=== PATIENT | female | born 1940 | race Hispanic/Latino ===

== ENCOUNTER 2019-02-25 09:43 | Emergency (ER) | payer OTHER ==
[2019-02-25 10:30] LABS: Absolute Lymphocytes (CBC) 1.9 K/uL (0.7-4.9); Basophils % 0.8 % (0-1.3); Hematocrit 43.7 % (36.0-45.0); Lymphocytes % 31.4 % (15.3-44.8); MPV 8.3 fL (7.6-11.3); RBC Red Blood Cell Count 4.77 M/uL (3.86-4.86)
[2019-02-25 10:36] LABS: Protime INR 0.94
[2019-02-25 10:59] LABS: ALT/SGPT 25 U/L (12-78); AST/SGOT 21 U/L (15-37); Albumin 3.9 g/dL (3.4-5.0); Alkaline Phosphatase 56 U/L (45-117); BUN Blood Urea Nitrogen 19 mg/dL (7-18); Bicarbonate 28 mmol/L (21-32); Bilirubin Direct 0.1 mg/dL (0-0.2); Bilirubin Total 0.5 mg/dL (0.2-1.0); Glucose Level 96 mg/dL (74-106); Magnesium 2.2 mg/dL (1.8-2.4); NT PRO-BNP 409 pg/mL (<450); Potassium 4.7 mmol/L (3.5-5.1); Protein, Total 7.8 g/dL (6.4-8.2); Sodium Level 132 mmol/L (136-145); Troponin (Emerg Dept Use Only) < 0.02 ng/mL (0.0-0.045)
--- NOTE | 2019-02-25 11:12 | RAD REPORT ---
EXAM DESCRIPTION: [place] Single View02/25/2019 10:52 am CLINICAL HISTORY: Chest pain COMPARISON: 2009 FINDINGS: The lungs appear clear of acute infiltrate. The heart is mildly enlarged IMPRESSION: No acute abnormalities displayed
--- NOTE | 2019-02-25 11:30 | RAD REPORT ---
EXAM DESCRIPTION: CT - Angio Aorta For Dissection - 02/25/2019 11:15 am CLINICAL HISTORY: CP and HTN COMPARISON: Portable chest same date TECHNIQUE: Dynamically enhanced 3 mm thick images of the chest, abdomen, and upper pelvis were obtai sridevi during administration of approximately 150mL Isovue 370 IV contrast. Sagittal and coronal reconst ruction images were generated using MIP and reviewed. Exam utilizes a protocol to evaluate entire cou rse of the aorta. All CT scans are performed using dose optimization technique as appropriate and may include automated exposure control or mA/KV adjustment according to patient size. FINDINGS: Aorta is normal in diameter with no dissection or other acute aortic findings. Reconstruct ion images show no suspicious findings. Aortic calcifications are present without no displacement. Th ere is dense calcification near the origin of the left subclavian artery. Subclavian origin stenosis is not suspected. Innominate artery and left common carotid artery origins are bovine configuration v ariant. Pulmonary arteries are normal as well. No cardiomegaly, pericardial thickening or pericardial effusio n. No focal mass or infiltrate. Interstitial pattern is not outside of normal range. No pleural thickeni ng, pleural effusion or pneumothorax. No abnormal mediastinal or hilar mass or lymphadenopathy seen. No chest wall mass or abnormal axillar y lymphadenopathy. No pericardial effusion. Celiac, SMA and renal arteries show no suspicious findings. Solid abdominal viscera and bowel show no significant findings. No mass or abnormal lymphadenopathy. No free air, free fluid or inflammatory stranding. No urinary bladder abnormality. Bony degenerative changes are present. No acute bone finding. Degenerative changes most pronounced at L5-S1. IMPRESSION: Negative CT scan of the aorta for dissection, aneurysm or acute finding. No other significant findings on chest, abdomen and upper pelvis examination.Nonacute findings are de tailed in the body of the report.
[2019-02-25] MEDS ORDERED: LORAZEPAM 1 MG TABLET ONE (12:00)
[2019-02-25] MEDS ORDERED: MECLIZINE HCL 12.5 MG TAB ONE (12:00)
[2019-02-25] MEDS ORDERED: ACETAMINOPHEN 325 MG TABLET ONE (12:04)
--- NOTE | 2019-02-25 12:24 | ER ---
Nurse's Notes [facility] Name: Amy Wood Age: 78 yrs Sex: Female : 1940 Arrival Date: 02/25/2019 Time: 09:46 Bed 8 Private MD: Asif Hill Diagnosis: Dizziness and giddiness Presentation: 02/25 09:58 Presenting complaint: Patient states: BP was high yesterday at 190/80 and is still high jl7 today at 169/80, reports pain between shoulder blades and LOPEZ since yesterday and is dizzy this morning. Transition of care: patient was not received from another setting of care. Onset of symptoms was February 23, 2019. Risk Assessment: Do you want to hurt yourself or someone else? Patient reports no desire to harm self or others. Initial Sepsis Screen: Does the patient meet any 2 criteria? No. Patient's initial sepsis screen is negative. Does the patient have a suspected source of infection? No. Patient's initial sepsis screen is negative. Care prior to arrival: None. 09:58 Method Of Arrival: Ambulatory 7 09:58 Acuity: GRIS 2 jl7 Triage Assessment: 09:50 General: Appears in no apparent distress. uncomfortable, Behavior is cooperative. Pain: jl7 Complains of pain in LOPEZ, upper back pain Pain currently is 5 out of 10 on a pain scale. EENT: No signs and/or symptoms were reported regarding the EENT system. Neuro: Level of Consciousness is awake, alert, obeys commands. Cardiovascular: Heart tones present Patient's skin is warm and dry. Respiratory: Airway is patent Respiratory effort is even, unlabored, Respiratory pattern is regular, symmetrical, Breath sounds are clear bilaterally. GI: No signs and/or symptoms were reported involving the gastrointestinal system. : No signs and/or symptoms were reported regarding the genitourinary system. Derm: Skin is pink, warm \T\ dry. Musculoskeletal: Range of motion: intact in all extremities. Historical: - Allergies: 10:02 Codeine; jl7 10:02 Sulfa (Sulfonamide Antibiotics); jl7 10:02 Ciprofloxacin; jl7 10:02 Doxycycline; jl7 10:02 Bactrim; jl7 - Home Meds: 10:02 bisoprolol fumarate 5 mg Oral tab 1 tab TID [Active]; spironolactone 25 mg Oral tab 1 jl7 tab 2 times per day [Active]; - PMHx: 10:02 Hypertension; jl7 - PSHx: 10:02 Knee surgery; foot surgery; Hysterectomy; jl7 - Immunization history:: Adult Immunizations not up to date. - Social history:: Smoking status: Patient/guardian denies using tobacco. - Ebola Screening: : No symptoms or risks identified at this time. Screenin:59 Abuse screen: Denies threats or abuse. Denies injuries from another. Nutritional sv screening: No deficits noted. Tuberculosis screening: No symptoms or risk factors identified. Fall Risk None identified. Assessment: 10:00 General: See triage assessment. jl7 11:00 Reassessment: Patient appears in no apparent distress at this time. No changes from jl7 previously documented assessment. Patient and/or family updated on plan of care and expected duration. Pain level reassessed. Patient is alert, oriented x 3, equal unlabored respirations, skin warm/dry/pink. 12:00 Reassessment: Patient appears in no apparent distress at this time. No changes from jl7 previously documented assessment. Patient and/or family updated on plan of care and expected duration. Pain level reassessed. Patient is alert, oriented x 3, equal unlabored respirations, skin warm/dry/pink. Vital Signs: 10:02 BP 210 / 83; Pulse 70; Resp 16 S; Temp 98.2(TE); Pulse Ox 100% on R/A; Pain 5/10; jl7 10:40 BP 188 / 80; Pulse 66; Resp 16 S; Pulse Ox 97% on R/A; jl7 11:56 BP 179 / 76; Pulse 59; Resp 16; Pulse Ox 96% ; sv ED Course: 09:46 Patient arrived in ED. as 09:46 Asif Hill MD is Private Physician. as 09:48 Lakhwinder Bird RN is Primary Nurse. jl7 09:59 Arm band placed on. sv 09:59 Patient has correct armband on for positive identification. Bed in low position. Call sv light in reach. Adult w/ patient. Door closed. Head of bed elevated. 10:00 Triage completed. jl7 10:05 Venkat Davison MD is Attending Physician. kdr 10:20 Inserted saline lock: 22 gauge in right forearm, using aseptic technique. ,using sv aseptic technique. diffusics Blood collected. Flushed right forearm with 5 ml normal saline. 11:02 XRAY Chest (1 view) In Process Unspecified. EDMS 11:16 CT Aorta for Dissection In Process Unspecified. EDMS 12:23 Asif Hill MD is Referral Physician. kdr 12:56 No provider procedures requiring assistance completed. IV discontinued, intact, jl7 bleeding controlled, No redness/swelling at site. Pressure dressing applied. Administered Medications: 12:22 Drug: Meclizine 25 mg Route: PO; jl7 12:55 Follow up: Response: No adverse reaction; Marked relief of symptoms jl7 12:22 Not Given (Patient Refused): Ativan 1 mg PO once jl7 12:24 Drug: Tylenol 650 mg Route: PO; jl7 12:55 Follow up: Response: No adverse reaction; Pain is decreased jl7 Outcome: 12:23 Discharge ordered by MD. kdr 12:57 Discharged to home ambulatory. jl7 12:57 Condition: stable 12:57 Discharge instructions given to patient, Instructed on discharge instructions, follow up and referral plans. medication usage, Demonstrated understanding of instructions, follow-up care, medications. 12:57 Patient left the ED. jl7 Signatures: Dispatcher [employer] Donna Nixon, RN RN Venkat Morse MD MD kdr Martinez, Amelia as Leal, Jahala, RN RN jl7 Corrections: (The following items were deleted from the chart) 13:38 13:00 Response: No adverse reaction; Pain is decreased jl7 jl7 13:38 13:00 Response: No adverse reaction; Marked relief of symptoms jl7 jl7
--- NOTE | 2019-02-25 12:24 | EDPHYS ---
Physician Documentation [facility] Name: Amy Wood Age: 78 yrs Sex: Female : 1940 Arrival Date: 02/25/2019 Time: 09:46 Bed 8 Private MD: Asif Hill ED Physician Venkat Davison HPI: 02/25 10:27 This 78 yrs old Female presents to ER via Ambulatory with complaints of High kdr Blood Pressure, Back Pain. 10:27 Onset: The symptoms/episode began/occurred this morning. Modifying factors: The kdr symptoms are aggravated by ACtivity, The symptoms are alleviated by Nothing. Associated signs and symptoms: Pertinent positives: chest pain, dizziness, weakness, Pertinent negatives: dyspnea, headache. Severity of symptoms: At its worst the blood pressure was moderate, in the emergency department the blood pressure is unchanged. The patient has experienced similar episodes in the past, a few times. The patient has not recently seen a physician. Historical: - Allergies: 10:02 Codeine; jl7 10:02 Sulfa (Sulfonamide Antibiotics); jl7 10:02 Ciprofloxacin; jl7 10:02 Doxycycline; jl7 10:02 Bactrim; jl7 - Home Meds: 10:02 bisoprolol fumarate 5 mg Oral tab 1 tab TID [Active]; spironolactone 25 mg Oral tab 1 jl7 tab 2 times per day [Active]; - PMHx: 10:02 Hypertension; jl7 - PSHx: 10:02 Knee surgery; foot surgery; Hysterectomy; jl7 - Immunization history:: Adult Immunizations not up to date. - Social history:: Smoking status: Patient/guardian denies using tobacco. - Ebola Screening: : No symptoms or risks identified at this time. ROS: 10:27 Constitutional: Negative for fever, chills, and weight loss, Eyes: Negative for injury, kdr pain, redness, and discharge, ENT: Negative for injury, pain, and discharge, Neck: Negative for injury, pain, and swelling, Respiratory: Negative for shortness of breath, cough, wheezing, and pleuritic chest pain, Abdomen/GI: Negative for abdominal pain, nausea, vomiting, diarrhea, and constipation, Back: Negative for injury and pain, : Negative for injury, bleeding, discharge, and swelling, MS/Extremity: Negative for injury and deformity, Skin: Negative for injury, rash, and discoloration, Psych: Negative for depression, anxiety, suicide ideation, homicidal ideation, and hallucinations, Allergy/Immunology: Negative for hives, rash, and allergies, Endocrine: Negative for neck swelling, polydipsia, polyuria, polyphagia, and marked weight changes, Hematologic/Lymphatic: Negative for swollen nodes, abnormal bleeding, and unusual bruising. 10:27 Cardiovascular: Positive for chest pain, Negative for edema, orthopnea, palpitations, paroxysmal nocturnal dyspnea, acute changes. Exam: 10:27 Constitutional: This is a well developed, well nourished patient who is awake, alert, kdr and in no acute distress. Head/Face: Normocephalic, atraumatic. Eyes: Pupils equal round and reactive to light, extra-ocular motions intact. Lids and lashes normal. Conjunctiva and sclera are non-icteric and not injected. Cornea within normal limits. Periorbital areas with no swelling, redness, or edema. Neck: Trachea midline, no thyromegaly or masses palpated, and no cervical lymphadenopathy. Supple, full range of motion without nuchal rigidity, or vertebral point tenderness. No Meningismus. Chest/axilla: Normal chest wall appearance and motion. Nontender with no deformity. No lesions are appreciated. Cardiovascular: Regular rate and rhythm with a normal S1 and S2. No gallops, murmurs, or rubs. Normal PMI, no JVD. No pulse deficits. Respiratory: Lungs have equal breath sounds bilaterally, clear to auscultation and percussion. No rales, rhonchi or wheezes noted. No increased work of breathing, no retractions or nasal flaring. Abdomen/GI: Soft, non-tender, with normal bowel sounds. No distension or tympany. No guarding or rebound. No evidence of tenderness throughout. Back: No spinal tenderness. No costovertebral tenderness. Full range of motion. Skin: Warm, dry with normal turgor. Normal color with no rashes, no lesions, and no evidence of cellulitis. MS/ Extremity: Pulses equal, no cyanosis. Neurovascular intact. Full, normal range of motion. Neuro: Awake and alert, GCS 15, oriented to person, place, time, and situation. Cranial nerves II-XII grossly intact. Motor strength 5/5 in all extremities. Sensory grossly intact. Cerebellar exam normal. Normal gait. Psych: Awake, alert, with orientation to person, place and time. Behavior, mood, and affect are within normal limits. Vital Signs: 10:02 BP 210 / 83; Pulse 70; Resp 16 S; Temp 98.2(TE); Pulse Ox 100% on R/A; Pain 5/10; jl7 10:40 BP 188 / 80; Pulse 66; Resp 16 S; Pulse Ox 97% on R/A; jl7 11:56 BP 179 / 76; Pulse 59; Resp 16; Pulse Ox 96% ; sv MDM: 10:27 Data reviewed: vital signs, nurses notes, lab test result(s), radiologic studies. kdr Counseling: I had a detailed discussion with the patient and/or guardian regarding: the historical points, exam findings, and any diagnostic results supporting the discharge/admit diagnosis, lab results, radiology results. 11:59 ED course: The patient refused MRI, would not be premedicated either. kdr 12:23 Patient medically screened. kdr 02/25 10:06 Order name: Basic Metabolic Panel; Complete Time: 11:50 kdr 02/25 10:06 Order name: CBC with Diff; Complete Time: 11:50 kdr 02/25 10:06 Order name: LFT's; Complete Time: 11:50 kdr 02/25 10:06 Order name: Magnesium; Complete Time: 11:50 kdr 02/25 10:06 Order name: NT PRO-BNP; Complete Time: 11:50 kdr 02/25 10:06 Order name: PT-INR; Complete Time: 11:50 kdr 02/25 10:06 Order name: Troponin (emerg Dept Use Only); Complete Time: 11:50 kdr 02/25 10:06 Order name: XRAY Chest (1 view); Complete Time: 11:50 kdr 02/25 10:06 Order name: EKG; Complete Time: 10:07 kdr 02/25 10:06 Order name: CT Aorta for Dissection; Complete Time: 11:50 kdr 02/25 10:30 Order name: Brain Wo Cont EDMS 02/25 10:06 Order name: Cardiac monitoring; Complete Time: 10:40 kdr 02/25 10:06 Order name: EKG - Nurse/Tech; Complete Time: 10:40 kdr 02/25 10:06 Order name: IV Saline Lock; Complete Time: 10:40 kdr 02/25 10:06 Order name: Labs collected and sent; Complete Time: 10:40 kdr 02/25 10:06 Order name: O2 Per Protocol; Complete Time: 10:40 kdr 02/25 10:06 Order name: O2 Sat Monitoring; Complete Time: 10:40 kdr 02/25 10:26 Order name: Recheck Blood Pressure; Complete Time: 10:40 kdr Administered Medications: 12:22 Drug: Meclizine 25 mg Route: PO; jl7 12:55 Follow up: Response: No adverse reaction; Marked relief of symptoms jl7 12:22 Not Given (Patient Refused): Ativan 1 mg PO once jl7 12:24 Drug: Tylenol 650 mg Route: PO; jl7 12:55 Follow up: Response: No adverse reaction; Pain is decreased jl7 Disposition: 02/25/19 12:23 Discharged to Home. Impression: Dizziness and giddiness. - Condition is Stable. - Discharge Instructions: Dizziness, [id number]. - Prescriptions for Meclizine 25 mg Oral Tablet - take 1 tablet by ORAL route every 8 hours As needed; 15 tablet. - Medication Reconciliation Form, Thank You Letter form. - Follow up: Asif Hill MD; When: 2 - 3 days; Reason: If symptoms return, Further diagnostic work-up, Recheck today's complaints, Continuance of care, Re-evaluation by your physician. - Problem is new. - Symptoms have improved. Signatures: Dispatcher [employer] EDNE Venkat Davison MD MD kdr Lakhwinder Bird RN RN jl7 Corrections: (The following items were deleted from the chart) 12:57 12:23 02/25/2019 12:23 Discharged to Home. Impression: Dizziness and giddiness. jl7 Condition is Stable. Forms are Medication Reconciliation Form, Thank You Letter, Antibiotic Education, Prescription Opioid Use. Follow up: Asif Hill; When: 2 - 3 days; Reason: If symptoms return, Further diagnostic work-up, Recheck today's complaints, Continuance of care, Re-evaluation by your physician. Problem is new. Symptoms have improved. kdr
--- NOTE | 2019-02-25 12:45 | EKG ---
Test Date: 2019-02-25 Test Time: 12:00:14 Stone Layer: SUNNY MEASUREMENT RESULTS: Intervals: Rate: 61 MI: 142 QRSD: 122 QT: 432 QTc: 434 [place]: P: 44 MI: 142 QRS: 58 T: 34 INTERPRETIVE STATEMENTS: Normal sinus rhythm Right bundle branch block Abnormal ECG Compared to ECG 12/06/2013 07:20:15 Ventricular premature complex(es) no longer present Electronically Signed On 02-25-19 12:44:59 MANUFACTURER'S REPRESENTATIVE by Puma Cruz
[2019-02-25 13:10] VITALS: TEMP 98.2
[2019-02-25 13:12] VITALS: BP 179/76; O2SAT 96
== END 2019-02-25 12:57 | disposition home or self-care (01) ==
LOC: ER 09:43
DX: R42 Dizziness and giddiness (principal); I10 Essential (primary) hypertension; Z88.1 Allergy status to other antibiotic agents; Z88.2 Allergy status to sulfonamides; Z88.5 Allergy status to narcotic agent
CPT/HCPCS: 93005; 85025; 80048; 36415; 83735; 85610; 80076; 84484; 83880; 71275; 74175; 71045; 99284; Q9967; J8597

== ENCOUNTER 2020-02-14 10:53 | Emergency (ER) | payer OTHER ==
[2020-02-14 11:51] LABS: Potassium 4.5 mmol/L (3.5-5.1)
[2020-02-14 11:52] LABS: Absolute Lymphocytes (CBC) 2.1 K/uL (0.7-4.9); Basophils % 0.7 % (0-1.3); Hematocrit 43.9 % (36.0-45.0); Lymphocytes % 30.7 % (15.3-44.8); MPV 8.8 fL (7.6-11.3); RBC Red Blood Cell Count 4.75 M/uL (3.86-4.86)
--- NOTE | 2020-02-14 12:20 | RAD REPORT ---
EXAM DESCRIPTION: CT - Head Brain Wo Cont - 02/14/2020 11:42 am CLINICAL HISTORY: headache, high blood pressure COMPARISON: No comparisons TECHNIQUE: Axial 5 mm thick images of the head were obtained without IV contrast. All CT scans are performed using dose optimization technique as appropriate and may include automated exposure control or mA/KV adjustment according to patient size. FINDINGS: No intracranial hemorrhage, mass, edema or shift of mid-line structures. No acute infarcti on changes seen. No abnormal extra-axial fluid collections. Atrophy and chronic ischemic change or mi ld. Ventricles are in proportion. Arterial tree calcifications are present. Mastoid air cells and visualized portions of the paranasal sinuses are clear. No acute bony findings. IMPRESSION: Negative non-contrast CT head examination for acute intracranial finding.
--- NOTE | 2020-02-14 12:23 | ER ---
Nurse's Notes [facility] Name: Amy Wood Age: 79 yrs Sex: Female : 1940 Arrival Date: 02/14/2020 Time: 10:56 Bed 5 Private MD: Asif Hill Diagnosis: Hypertension Presentation: 02/13 11:05 Chief complaint: Patient states: BP elevated today. BP 218/80, HR 69 at home just [employer]. ll1 States she took all her meds except the spironolactone. Int LOPEZ, none at this time. Coronavirus screen: Client denies travel out of the [place] in the last 14 days. At this time, the client does not indicate any symptoms associated with coronavirus-19. Ebola Screen: Patient denies travel to an Ebola-affected area in the 21 days before illness onset. Initial Sepsis Screen: Does the patient meet any 2 criteria? No. Patient's initial sepsis screen is negative. Does the patient have a suspected source of infection? No. Patient's initial sepsis screen is negative. Risk Assessment: Do you want to hurt yourself or someone else? Patient reports no desire to harm self or others. Onset of symptoms was February 14, 2020. 11:05 Method Of Arrival: Ambulatory ll1 11:05 Acuity: GRIS 2 ll1 Triage Assessment: 11:02 General: Appears in no apparent distress. comfortable, obese, well groomed, well sv developed, Behavior is calm, cooperative, appropriate for age. Neuro: Level of Consciousness is awake, alert, obeys commands, Oriented to person, place, time, situation, Moves all extremities. Full function Gait is steady, Speech is normal, Facial symmetry appears normal, Reports headache. Cardiovascular: Patient's skin is warm and dry. Respiratory: Airway is patent Respiratory effort is even, unlabored, Respiratory pattern is regular, symmetrical. Derm: Skin is intact, Skin is pink, warm \T\ dry. Historical: - Allergies: 11:04 Bactrim; ll1 11:04 Ciprofloxacin; ll1 11:04 Codeine; ll1 11:04 Doxycycline; ll1 11:04 Sulfa (Sulfonamide Antibiotics); ll1 - PMHx: 11:04 Hypertension; High Cholesterol; ll1 - PSHx: 11:04 Knee surgery; foot surgery; Hysterectomy; ll1 - Immunization history:: Flu vaccine is not up to date. - Social history:: Smoking status: Patient denies any tobacco usage or history of. - Family history:: not pertinent. - Hospitalizations: : No recent hospitalization is reported. Screenin:02 Abuse screen: Denies threats or abuse. Denies injuries from another. Nutritional sv screening: No deficits noted. Tuberculosis screening: No symptoms or risk factors identified. Fall Risk None identified. Assessment: 11:33 Reassessment: Patient appears in no apparent distress at this time. No changes from sv previously documented assessment. Patient and/or family updated on plan of care and expected duration. Pain level reassessed. Patient is alert, oriented x 3, equal unlabored respirations, skin warm/dry/pink. 11:51 Reassessment: Patient appears in no apparent distress at this time. No changes from sv previously documented assessment. Patient and/or family updated on plan of care and expected duration. Pain level reassessed. Patient is alert, oriented x 3, equal unlabored respirations, skin warm/dry/pink. Vital Signs: 11:05 BP 222 / 87; Pulse 70; Resp 17; Temp 98.5; Pulse Ox 97% on R/A; Weight 81.65 kg; Height ll1 5 ft. 0 in. (152.40 cm); Pain 0/10; 11:53 BP 182 / 73; Pulse 66; Resp 16; Pulse Ox 98% on R/A; sv 12:05 BP 173 / 73; rn 12:17 BP 173 / 73; Pulse 65; Resp 16; Pulse Ox 99% ; sv 11:05 Body Mass Index 35.15 (81.65 kg, 152.40 cm) ll1 ED Course: 10:56 Patient arrived in ED. mr 10:56 Asif Hill MD is Private Physician. mr 10:57 Donna Nuñez, MARIEL is Primary Nurse. sv 10:58 Anibal Rock MD is Attending Physician. rn 11:02 Arm band placed on. sv 11:02 Patient has correct armband on for positive identification. Bed in low position. Call sv light in reach. Adult w/ patient. Pulse ox on. NIBP on. Door closed. Head of bed elevated. 11:06 Triage completed. ll1 11:07 ED physician to see patient. sv 11:25 Inserted saline lock: 22 gauge in right antecubital area, using aseptic technique. sv ,using aseptic technique. diffusics Blood collected. Flushed right antecubital with 5 ml normal saline. 11:[address] Scan. sv 11:36 EKG done, by ED staff, reviewed by Anibal Rock MD. 3 11:37 Awaiting lab results. sv 11:48 CT Head Brain wo Cont In Process Unspecified. EDMS 11:51 Awaiting lab results, Awaiting radiology results. sv 12:41 No provider procedures requiring assistance completed. IV discontinued, intact, em bleeding controlled, No redness/swelling at site. Pressure dressing applied. Administered Medications: No medications were administered Outcome: 12:22 Discharge ordered by MD. rn 12:41 Discharged to home ambulatory. em 12:41 Condition: good 12:41 Discharge instructions given to patient, Instructed on discharge instructions, follow up and referral plans. Demonstrated understanding of instructions, follow-up care. 12:42 Patient left the ED. em Signatures: Dispatcher [employer] Donna Nixon, RN MARIEL Katie Carrasco Edgar, RN RN Anibal Alston MD MD rn Herrera, Deanna [facility] Rupert Ling RN RN ll1
--- NOTE | 2020-02-14 12:23 | EDPHYS ---
Physician Documentation [facility] Name: Amy Wood Age: 79 yrs Sex: Female : 1940 Arrival Date: 02/14/2020 Time: 10:56 Bed 5 Private MD: Asif Hill ED Physician Anibal Rock HPI: 02/13 11:23 This 79 yrs old Female presents to ER via Ambulatory with complaints of High rn Blood Pressure. 11:23 The patient has elevated blood pressure and discovered this at home. Onset: The rn symptoms/episode began/occurred 2 week(s) ago. Modifying factors:. Severity of symptoms: At its worst the blood pressure was moderate, in the emergency department the blood pressure is unchanged. The patient has experienced similar episodes in the past. The patient has been recently seen by a physician:. Reports BP medication changed 3 weeks ago, has been having higher than normal BP for some time, noticed last few days has had high blood pressure, systolic in 200s, but otherwise feels ok. Reports intermittent mild headache, mild dizziness, that seems to improve when BP improves. Was worried so came in for evaluation.. Historical: - Allergies: 11:04 Bactrim; ll1 11:04 Ciprofloxacin; ll1 11:04 Codeine; ll1 11:04 Doxycycline; ll1 11:04 Sulfa (Sulfonamide Antibiotics); ll1 - PMHx: 11:04 Hypertension; High Cholesterol; ll1 - PSHx: 11:04 Knee surgery; foot surgery; Hysterectomy; ll1 - Immunization history:: Flu vaccine is not up to date. - Social history:: Smoking status: Patient denies any tobacco usage or history of. - Family history:: not pertinent. - Hospitalizations: : No recent hospitalization is reported. ROS: 11:23 Constitutional: Negative for fever, chills, and weight loss, Eyes: Negative for injury, rn pain, redness, and discharge, Neck: Negative for injury, pain, and swelling, Cardiovascular: Negative for chest pain, palpitations, and edema, Respiratory: Negative for shortness of breath, cough, wheezing, and pleuritic chest pain, Abdomen/GI: Negative for abdominal pain, nausea, vomiting, diarrhea, and constipation, Back: Negative for injury and pain, MS/Extremity: Negative for injury and deformity, Skin: Negative for injury, rash, and discoloration, Neuro: Negative for weakness, numbness, tingling, and seizure Exam: 11:23 Constitutional: This is a well developed, well nourished patient who is awake, alert, rn and in no acute distress. Ambulatory to room without difficulty or assistance. Head/Face: Normocephalic, atraumatic. Eyes: Pupils equal round and reactive to light, extra-ocular motions intact. Cardiovascular: Regular rate and rhythm. No pulse deficits. Respiratory: Speaking full sentences. No increased work of breathing, no retractions or nasal flaring. Abdomen/GI: soft, non-tender, no pulsatile mass Skin: Warm, dry MS/ Extremity: Pulses equal, no cyanosis. Neurovascular intact. Full, normal range of motion. Equal circumference. Neuro: Awake and alert, GCS 15, oriented to person, place, time, and situation. Cranial nerves II-XII grossly intact. Motor strength 5/5 in all extremities. Sensory grossly intact. Cerebellar exam normal. Normal gait. Vital Signs: 11:05 BP 222 / 87; Pulse 70; Resp 17; Temp 98.5; Pulse Ox 97% on R/A; Weight 81.65 kg; Height ll1 5 ft. 0 in. (152.40 cm); Pain 0/10; 11:53 BP 182 / 73; Pulse 66; Resp 16; Pulse Ox 98% on R/A; sv 12:05 BP 173 / 73; rn 12:17 BP 173 / 73; Pulse 65; Resp 16; Pulse Ox 99% ; sv 11:05 Body Mass Index 35.15 (81.65 kg, 152.40 cm) ll1 MDM: 10:58 Patient medically screened. rn 12:21 Differential diagnosis: hypertensive crisis, Malignant HTN, asymptomatic HTN. Data rn reviewed: vital signs, nurses notes, lab test result(s), EKG, radiologic studies, CT scan, and as a result, I will discharge patient. Counseling: I had a detailed discussion with the patient and/or guardian regarding: the historical points, exam findings, and any diagnostic results supporting the discharge/admit diagnosis, lab results, radiology results, the need for outpatient follow up, to return to the emergency department if symptoms worsen or persist or if there are any questions or concerns that arise at home. Response to treatment: the patient's symptoms have mildly improved after treatment, and as a result, I will discharge patient. Special discussion: I discussed with the patient/guardian in detail that at this point there is no indication for admission to the hospital. It is understood, however, that if the symptoms persist or worsen the patient needs to return immediately for re-evaluation. ED course: BP improved without meds, neg w/u here, normal neuro exam, normal ct head.. 12:21 Counseling: I had a detailed discussion with the patient and/or guardian regarding: the rn presence of at least one elevated blood pressure reading (>120/80) during this emergency department visit. Special discussion: I have referred the patient to see his PCP for further evaluation of high blood pressure. 02/13 11:23 Order name: CBC with Diff; Complete Time: 12: rn 02/13 11:23 Order name: Basic Metabolic Panel; Complete Time: 12: rn 02/13 11:23 Order name: CT Head Brain wo Cont; Complete Time: 12:21 rn 02/13 11:23 Order name: IV Start; Complete Time: 11:33 rn 02/13 11:23 Order name: EKG; Complete Time: 11: rn 02/13 11:23 Order name: EKG - Nurse/Tech; Complete Time: 11:33 rn Administered Medications: No medications were administered Disposition: 02/14/20 12:22 Discharged to Home. Impression: Hypertension. - Condition is Stable. - Discharge Instructions: Hypertension, Managing Your Hypertension. - Medication Reconciliation Form, Thank You Letter, Antibiotic Education, Prescription Opioid Use form. - Follow up: Private Physician; When: As needed; Reason: Recheck today's complaints, Re-evaluation by your physician. - Problem is an ongoing problem. - Symptoms have improved. Signatures: Dispatcher [employer] EDMS Mat Payton RN RN Anibal Alston MD MD rn Lewis, Lynsay, RN RN ll1 Corrections: (The following items were deleted from the chart) 11:23 Constitutional: Negative for fever, chills, and weight loss, Eyes: Negative for rn injury, pain, redness, and discharge, Neck: Negative for injury, pain, and swelling, Cardiovascular: Negative for chest pain, palpitations, and edema, Respiratory: Negative for shortness of breath, cough, wheezing, and pleuritic chest pain, Abdomen/GI: Negative for abdominal pain, nausea, vomiting, diarrhea, and constipation, MS/Extremity: Negative for injury and deformity, Skin: Negative for injury, rash, and discoloration, Neuro: Negative for weakness, numbness, tingling, and seizure rn 12:42 12:22 02/14/2020 12:22 Discharged to Home. Impression: Hypertension. Condition is em Stable. Forms are Medication Reconciliation Form, Thank You Letter, Antibiotic Education, Prescription Opioid Use. Follow up: Private Physician; When: As needed; Reason: Recheck today's complaints, Re-evaluation by your physician. Problem is an ongoing problem. Symptoms have improved. rn
[2020-02-14 12:53] VITALS: TEMP 98.5
[2020-02-14 13:04] VITALS: BP 173/73
[2020-02-14 13:11] VITALS: O2SAT 99
== END 2020-02-14 12:42 | disposition home or self-care (01) ==
LOC: ER 10:53
DX: I10 Essential (primary) hypertension (principal); Z88.1 Allergy status to other antibiotic agents; Z88.2 Allergy status to sulfonamides; Z88.3 Allergy status to other anti-infective agents; Z88.5 Allergy status to narcotic agent
CPT/HCPCS: 36415; 70450; 80048; 85025; 93005; 99284

== ENCOUNTER 2020-05-08 22:43 | Emergency (ER) | payer OTHER ==
--- NOTE | 2020-05-08 23:20 | ER ---
Nurse's Notes [facility] Name: Amy Wood Age: 79 yrs Sex: Female : 1940 Arrival Date: 05/08/2020 Time: 22:46 Bed 4 Private MD: Diagnosis: Hypertension Presentation: 05/08 22:55 Chief complaint: Patient states: my blood pressure is 190's and i am not feeling good mg2 like flushed or hot. denies pain or dizziness. 22:55 Method Of Arrival: Wheelchair mg2 23:01 Coronavirus screen: Client denies travel out of the [place] in the last 14 days. At this mg2 time, the client does not indicate any symptoms associated with coronavirus-19. Ebola Screen: No symptoms or risks identified at this time. Initial Sepsis Screen: Does the patient meet any 2 criteria? No. Patient's initial sepsis screen is negative. Does the patient have a suspected source of infection? No. Patient's initial sepsis screen is negative. Risk Assessment: Do you want to hurt yourself or someone else? Patient reports no desire to harm self or others. Onset of symptoms was May 08, 2020. 23:01 Acuity: GRIS 3 mg2 Triage Assessment: 23:03 General: Appears in no apparent distress. comfortable, Behavior is calm, cooperative. mg2 Pain: Denies pain. EENT: No deficits noted. Neuro: No deficits noted. Cardiovascular: Capillary refill < 3 seconds Patient's skin is warm and dry. Respiratory: Airway is patent Respiratory effort is even, unlabored, Respiratory pattern is regular, symmetrical. GI: No signs and/or symptoms were reported involving the gastrointestinal system. : No signs and/or symptoms were reported regarding the genitourinary system. Derm: Skin is intact, is healthy with good turgor. Musculoskeletal: Circulation, motion, and sensation intact. Capillary refill < 3 seconds. Historical: - Allergies: 23:03 Bactrim; mg2 23:03 Ciprofloxacin; mg2 23:03 Codeine; mg2 23:03 Doxycycline; mg2 23:03 Sulfa (Sulfonamide Antibiotics); mg2 - Home Meds: 23:03 bisoprolol fumarate 5 mg Oral tab 1 tab TID [Active]; amlodipine oral [Active]; mg2 olmesartan oral oral [Active]; - PMHx: 23:03 High Cholesterol; Hypertension; mg2 - PSHx: 23:03 None; mg2 - Immunization history:: Flu vaccine status is unknown. - Social history:: Smoking status: unknown. Screenin:04 Abuse screen: Denies threats or abuse. Denies injuries from another. Nutritional mg2 screening: No deficits noted. Tuberculosis screening: No symptoms or risk factors identified. Fall Risk None identified. Assessment: 23:04 General: see triage note. mg2 23:43 Reassessment: Patient appears in no apparent distress at this time. mg2 Vital Signs: 23:01 BP 176 / 64; Pulse 76; Resp 18; Temp 98.4; Pulse Ox 97% on R/A; Weight 81.65 kg; Height mg2 5 ft. 0 in. (152.40 cm); Pain 0/10; 23:43 BP 168 / 70; Pulse 70; Resp 18; Temp 98; Pulse Ox 100% on R/A; mg2 23:01 Body Mass Index 35.15 (81.65 kg, 152.40 cm) mg2 ED Course: 22:46 Patient arrived in ED. cf2 22:52 Onel Palm MD is Attending Physician. [facility] 22:55 Vick Bundy RN is Primary Nurse. mg2 23:02 Triage completed. mg2 23:02 Arm band placed on. mg2 23:05 Patient has correct armband on for positive identification. mg2 23:05 No provider procedures requiring assistance completed. mg2 23:43 Patient did not have IV access during this emergency room visit. mg2 Administered Medications: No medications were administered Outcome: 23:19 Discharge ordered by . 7 23:43 Discharged to home ambulatory. mg2 23:43 Condition: good 23:43 Discharge instructions given to patient, Instructed on discharge instructions, follow up and referral plans. Demonstrated understanding of instructions, follow-up care. 23:43 Patient left the ED. mg2 18 05:15 Patient left the ED. rr5 Signatures: Vick Bundy RN RN mg2 Leonel Bang RN RN rr5 Patricia Fontaine 2 Onel Palm MD MD 7 Corrections: (The following items were deleted from the chart) 05/08 23:02 22:55 Chief complaint: Patient states: my blood pressure is 190's and i am not feeling mg2 good like flushed. mg2
--- NOTE | 2020-05-08 23:20 | EDPHYS ---
Physician Documentation [facility] Name: Amy Wood Age: 79 yrs Sex: Female : 1940 Arrival Date: 05/08/2020 Time: 22:46 Bed 4 Private MD: ED Physician Onel Palm HPI: 05/08 23:13 This 79 yrs old Female presents to ER via Wheelchair with complaints of High mh7 Blood Pressure. 23:13 The patient has elevated blood pressure and discovered this at home, with a home mh7 device. Onset: The symptoms/episode began/occurred today. Modifying factors: The symptoms are aggravated by nothing, The symptoms are alleviated by nothing. Associated signs and symptoms: Pertinent positives: Goodman hot, Pertinent negatives: chest pain, dizziness, dyspnea, headache, lightheadedness, nausea, visual changes, vomiting, weakness. Severity of symptoms: At its worst the blood pressure was 190 mm Hg, in the emergency department the blood pressure is improved, markedly, 165 mm Hg. The patient has experienced similar episodes in the past, multiple times. Historical: - Allergies: 23:03 Bactrim; mg2 23:03 Ciprofloxacin; mg2 23:03 Codeine; mg2 23:03 Doxycycline; mg2 23:03 Sulfa (Sulfonamide Antibiotics); mg2 - Home Meds: 23:03 bisoprolol fumarate 5 mg Oral tab 1 tab TID [Active]; amlodipine oral [Active]; mg2 olmesartan oral oral [Active]; - PMHx: 23:03 High Cholesterol; Hypertension; mg2 - PSHx: 23:03 None; mg2 - Immunization history:: Flu vaccine status is unknown. - Social history:: Smoking status: unknown. ROS: 23:13 Constitutional: Negative for fever, chills, and weight loss, Eyes: Negative for injury, mh7 pain, redness, and discharge, ENT: Negative for injury, pain, and discharge, Neck: Negative for injury, pain, and swelling, Cardiovascular: Negative for chest pain, palpitations, and edema, Respiratory: Negative for shortness of breath, cough, wheezing, and pleuritic chest pain, Abdomen/GI: Negative for abdominal pain, nausea, vomiting, diarrhea, and constipation, Back: Negative for injury and pain, : Negative for injury, bleeding, discharge, and swelling, MS/Extremity: Negative for injury and deformity, Skin: Negative for injury, rash, and discoloration, Neuro: Negative for headache, weakness, numbness, tingling, and seizure, Psych: Negative for depression, anxiety, suicide ideation, homicidal ideation, and hallucinations, Allergy/Immunology: Negative for hives, rash, and allergies, Endocrine: Negative for neck swelling, polydipsia, polyuria, polyphagia, and marked weight changes, Hematologic/Lymphatic: Negative for swollen nodes, abnormal bleeding, and unusual bruising. Exam: 23:13 Constitutional: This is a well developed, well nourished patient who is awake, alert, mh7 and in no acute distress. Head/Face: Normocephalic, atraumatic. Eyes: Pupils equal round and reactive to light, extra-ocular motions intact. Lids and lashes normal. Conjunctiva and sclera are non-icteric and not injected. Cornea within normal limits. Periorbital areas with no swelling, redness, or edema. Neck: Trachea midline, no thyromegaly or masses palpated, and no cervical lymphadenopathy. Supple, full range of motion without nuchal rigidity, or vertebral point tenderness. No Meningismus. Chest/axilla: Normal chest wall appearance and motion. Nontender with no deformity. No lesions are appreciated. Cardiovascular: Regular rate and rhythm with a normal S1 and S2. No gallops, murmurs, or rubs. Normal PMI, no JVD. No pulse deficits. Respiratory: Lungs have equal breath sounds bilaterally, clear to auscultation and percussion. No rales, rhonchi or wheezes noted. No increased work of breathing, no retractions or nasal flaring. Abdomen/GI: Soft, non-tender, with normal bowel sounds. No distension or tympany. No guarding or rebound. No evidence of tenderness throughout. Back: No spinal tenderness. No costovertebral tenderness. Full range of motion. Skin: Warm, dry with normal turgor. Normal color with no rashes, no lesions, and no evidence of cellulitis. MS/ Extremity: Pulses equal, no cyanosis. Neurovascular intact. Full, normal range of motion. Neuro: Awake and alert, GCS 15, oriented to person, place, time, and situation. Cranial nerves II-XII grossly intact. Motor strength 5/5 in all extremities. Sensory grossly intact. Cerebellar exam normal. Normal gait. Psych: Awake, alert, with orientation to person, place and time. Behavior, mood, and affect are within normal limits. Vital Signs: 23:01 BP 176 / 64; Pulse 76; Resp 18; Temp 98.4; Pulse Ox 97% on R/A; Weight 81.65 kg; Height mg2 5 ft. 0 in. (152.40 cm); Pain 0/10; 23:43 BP 168 / 70; Pulse 70; Resp 18; Temp 98; Pulse Ox 100% on R/A; mg2 23:01 Body Mass Index 35.15 (81.65 kg, 152.40 cm) mg2 MDM: 23:13 Differential diagnosis: hypertensive crisis, Malignant HTN, Hypertension. Data 7 reviewed: vital signs, nurses notes. Data interpreted: Pulse oximetry: on room air is 97 %. Interpretation: normal. Counseling: I had a detailed discussion with the patient and/or guardian regarding: the historical points, exam findings, and any diagnostic results supporting the discharge/admit diagnosis, the presence of at least one elevated blood pressure reading (>120/80) during this emergency department visit. Refusal of service: The patient/guardian displays adequate decision making capability and despite a detailed discussion of alternatives, benefits, risks, and consequences refuses: all lab tests, all X-rays. 23:19 Patient medically screened. 7 Administered Medications: No medications were administered Disposition: 05/08/20 23:19 Discharged to Home. Impression: Hypertension. - Condition is Stable. - Discharge Instructions: Hypertension, [id number], Managing Your Hypertension. - Medication Reconciliation Form, Thank You Letter, Antibiotic Education, Prescription Opioid Use form. - Follow up: Private Physician; When: 1 - 2 days; Reason: Worsening of condition, Recheck today's complaints, Continuance of care, Re-evaluation by your physician. - Problem is an acute exacerbation. - Symptoms have improved. Signatures: Vick Bundy RN RN mg2 Leonel Bang RN RN rr5 Onel Palm MD MD [facility] Corrections: (The following items were deleted from the chart) 23:43 23:19 05/08/2020 23:19 Discharged to Home. Impression: Hypertension. Condition is mg2 Stable. Forms are Medication Reconciliation Form, Thank You Letter, Antibiotic Education, Prescription Opioid Use. Follow up: Private Physician; When: 1 - 2 days; Reason: Worsening of condition, Recheck today's complaints, Continuance of care, Re-evaluation by your physician. Problem is an acute exacerbation. Symptoms have improved. mh7 05/09 05:15 05/08 23:43 05/08/2020 23:19 Discharged to Home. Impression: Hypertension. Condition is rr5 Stable. Discharge Instructions: Hypertension, [id number], Managing Your Hypertension. Forms are Medication Reconciliation Form, Thank You Letter, Antibiotic Education, Prescription Opioid Use. Follow up: Private Physician; When: 1 - 2 days; Reason: Worsening of condition, Recheck today's complaints, Continuance of care, Re-evaluation by your physician. Problem is an acute exacerbation. Symptoms have improved. mg2
[2020-05-08 23:56] VITALS: BP 168/70; TEMP 98; O2SAT 100
== END 2020-05-09 05:15 | disposition home or self-care (01) ==
LOC: ER 22:43
DX: I10 Essential (primary) hypertension (principal); E78.00 Pure hypercholesterolemia, unspecified
CPT/HCPCS: 99281

== ENCOUNTER 2020-07-09 12:16 | Emergency (ER) | payer OTHER ==
--- NOTE | 2020-07-09 13:55 | RAD REPORT ---
EXAM DESCRIPTION: RAD - Chest Single View - 07/09/2020 1:31 pm CLINICAL HISTORY: COUGH Chest pain. COMPARISON: <Comparisons> FINDINGS: Portable technique limits examination quality. The lungs are grossly clear. The heart is normal in size. No displaced fractures. IMPRESSION: No acute intrathoracic process suspected.
--- NOTE | 2020-07-09 14:13 | ER ---
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 Feels kind of weak and ca1 dizzy. Denies headache. Coronavirus screen: Client denies travel out of the [place] in the last 14 days. At this time, the client does not indicate any symptoms associated with coronavirus-19. Ebola Screen: Patient negative for fever greater than or equal to 101.5 degrees Fahrenheit, and additional compatible Ebola Virus Disease symptoms Patient denies exposure to infectious person. Patient denies travel to an Ebola-affected area in the 21 days before illness onset. No symptoms or risks identified at this time. Initial Sepsis Screen: Does the patient meet any 2 criteria? No. Patient's initial sepsis screen is negative. Does the patient have a suspected source of infection? No. Patient's initial sepsis screen is negative. Risk Assessment: Do you want to hurt yourself or someone else? Patient reports no desire to harm self or others. Onset of symptoms was July 09, 2020. 12:27 Method Of Arrival: Wheelchair ca1 12:27 Acuity: GRIS 3 ca1 Historical: - Allergies: 12:29 Bactrim; ca1 12:29 Ciprofloxacin; ca1 12:29 Codeine; ca1 12:29 Doxycycline; ca1 12:29 Sulfa (Sulfonamide Antibiotics); ca1 - PMHx: 12:29 High Cholesterol; Hypertension; ca1 - PSHx: 12:29 None; ca1 - Immunization history:: Pneumococcal vaccine is not up to date, Flu vaccine is not up to date. 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 - Social history:: Smoking status: Patient denies any tobacco usage or history of. Screenin:56 Abuse screen: Denies threats or abuse. Nutritional screening: No deficits noted. rb3 Tuberculosis screening: No symptoms or risk factors identified. Fall Risk None identified. Assessment: 12:56 General: Appears in no apparent distress. comfortable, Behavior is calm, cooperative, rb3 Denies fever. Pain: Denies pain. Neuro: Level of Consciousness is awake, alert, obeys commands, Oriented to person, place, time, situation. Neuro: Reports dizziness, weakness. Cardiovascular: Patient's skin is warm and dry. Respiratory: Airway is patent Respiratory effort is even, unlabored, Respiratory pattern is regular, symmetrical. GI: No signs and/or symptoms were reported involving the gastrointestinal system. : No signs and/or symptoms were reported regarding the genitourinary system. 13:49 Reassessment: Patient appears in no apparent distress at this time. No changes from rb3 previously documented assessment. 14:20 Reassessment: Discharge pending due to awaiting lab results. rb3 14:30 Reassessment: Patient appears in no apparent distress at this time. Patient and/or rb3 family updated on plan of care and expected duration. Pain level reassessed. Patient is alert, oriented x 3, equal unlabored respirations, skin warm/dry/pink. 15:08 Reassessment: Patient appears in no apparent distress at this time. No changes from rb3 previously documented assessment. 15:37 Reassessment: PO challenge tolerated well. rb3 15:50 Reassessment: d/c instructions given. gait steady and even. zb Vital Signs: 12:27 BP 188 / 86; Pulse 62; Resp 16 S; Temp 98.3(TE); Pulse Ox 98% on R/A; Weight 81.65 kg ca1 (R); Height 5 ft. 0 in. (152.40 cm) (R); Pain 0/10; 13:44 BP 172 / 81; Pulse 62; Resp 15; Pulse Ox 99% ; rb3 14:30 BP 181 / 66; Pulse 55; Resp 14; Pulse Ox 100% ; rb3 15:29 BP 183 / 69; Pulse 58; Resp 15; Pulse Ox 99% ; rb3 12:27 Body Mass Index 35.15 (81.65 kg, 152.40 cm) ca1 ED Course: 12:24 Patient arrived in ED. am2 12:25 Asif Hill MD is Private Physician. am2 12:28 Triage completed. ca1 12:29 Arm band placed on right wrist. ca1 12:48 Gonzales Burrell MD is Attending Physician. soledad 13:28 Cecelia Warren, MARIEL is Primary Nurse. rb3 13:30 XRAY Chest (1 view) In Process Unspecified. EDAK 13:42 Missed attempt(s): 22 gauge in right antecubital area. Bleeding controlled, band aid rb3 applied, catheter tip intact. 13:53 Patient has correct armband on for positive identification. Bed in low position. Call [facility] light in reach. Side rails up X 1. Pillow given. monitor technician on. Pulse ox on. NIBP on. 13:53 Initial lab(s) drawn, by ia, sent to lab. Inserted saline lock: 22 gauge in right [facility] forearm, using aseptic technique. 13:54 Liver (Hepatic) Function Sent. [facility] 13:54 Basic Metabolic Panel Sent. [facility] 13:54 CBC with Automated Diff Sent. [facility] 13:54 Basic Metabolic Panel Sent. [facility] 13:55 CBC with Diff Sent. [facility] 13:55 LFT's Sent. [facility] 13:55 Magnesium Sent. [facility] 13:55 NT PRO-BNP Sent. [facility] 13:55 PT-INR Sent. [facility] 13:55 Troponin (emerg Dept Use Only) Sent. [facility] 13:56 Urine collected: clean catch specimen, clear, EKG done, by ED staff, reviewed by Gonzales Burrell MD. 14:13 Asif Hill MD is Referral Physician. [facility] 14:13 Rich Connolly MD is Referral Physician. [facility] 15:51 No provider procedures requiring assistance completed. IV discontinued, intact, zb bleeding controlled, No redness/swelling at site. Pressure dressing applied. Administered Medications: No medications were administered Outcome: 14:13 Discharge ordered by . soledad 15:51 Discharged to home ambulatory. zb 15:51 Condition: stable 15:51 Discharge instructions given to patient, Instructed on discharge instructions, follow up and referral plans. Demonstrated understanding of instructions, follow-up care. 15:52 Patient left the ED. zb Signatures: Dispatcher [employer] [facility] Gonzales Burrell MD MD cha Martinez, Maria [facility] Marely Reynoso Cheryl, RN Sandi Mayo RN RN zb Barber, Rebecca RN RN rb3
--- NOTE | 2020-07-09 14:13 | EDPHYS ---
Physician Documentation [facility] Name: Amy Wood Age: 79 yrs Sex: Female : 1940 Arrival Date: 07/09/2020 Time: 12:24 Bed 19 Private MD: Asif Hill ED Physician Gonzales Burrell HPI: 07/09 14:00 This 79 yrs old Female presents to ER via Wheelchair with complaints of High soledad Blood Pressure. 14:00 The patient has elevated blood pressure and discovered this at home. Onset: The soledad symptoms/episode began/occurred just prior to arrival, this morning. Modifying factors: The symptoms are aggravated by activity, The symptoms are alleviated by prescription meds. Severity of symptoms: At its worst the blood pressure was mild. The patient has not experienced similar symptoms in the past. Historical: - Allergies: 12:29 Bactrim; ca1 12:29 Ciprofloxacin; ca1 12:29 Codeine; ca1 12:29 Doxycycline; ca1 12:29 Sulfa (Sulfonamide Antibiotics); ca1 - PMHx: 12:29 High Cholesterol; Hypertension; ca1 - PSHx: 12:29 None; ca1 - Immunization history:: Pneumococcal vaccine is not up to date, Flu vaccine is not up to date. 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 - Social history:: Smoking status: Patient denies any tobacco usage or history of. ROS: 14:01 Constitutional: Negative for fever, chills, and weight loss, Eyes: Negative for injury, soledad pain, redness, and discharge, ENT: Negative for injury, pain, and discharge, Neck: Negative for injury, pain, and swelling, Cardiovascular: Negative for chest pain, palpitations, and edema, Respiratory: Negative for shortness of breath, cough, wheezing, and pleuritic chest pain, Abdomen/GI: Negative for abdominal pain, nausea, vomiting, diarrhea, and constipation, Back: Negative for injury and pain, : Negative for injury, bleeding, discharge, and swelling, MS/Extremity: Negative for injury and deformity, Skin: Negative for injury, rash, and discoloration, Neuro: Negative for headache, weakness, numbness, tingling, and seizure, Psych: Negative for depression, anxiety, suicide ideation, homicidal ideation, and hallucinations, Allergy/Immunology: Negative for hives, rash, and allergies, Endocrine: Negative for neck swelling, polydipsia, polyuria, polyphagia, and marked weight changes, Hematologic/Lymphatic: Negative for swollen nodes, abnormal bleeding, and unusual bruising. Exam: 14:01 Constitutional: This is a well developed, well nourished patient who is awake, alert, soledad and in no acute distress. Head/Face: Normocephalic, atraumatic. Eyes: Pupils equal round and reactive to light, extra-ocular motions intact. Lids and lashes normal. Conjunctiva and sclera are non-icteric and not injected. Cornea within normal limits. Periorbital areas with no swelling, redness, or edema. ENT: Nares patent. No nasal discharge, no septal abnormalities noted. Tympanic membranes are normal and external auditory canals are clear. Oropharynx with no redness, swelling, or masses, exudates, or evidence of obstruction, uvula midline. Mucous membranes moist. Neck: Trachea midline, no thyromegaly or masses palpated, and no cervical lymphadenopathy. Supple, full range of motion without nuchal rigidity, or vertebral point tenderness. No Meningismus. Chest/axilla: Normal chest wall appearance and motion. Nontender with no deformity. No lesions are appreciated. Cardiovascular: Regular rate and rhythm with a normal S1 and S2. No gallops, murmurs, or rubs. Normal PMI, no JVD. No pulse deficits. Respiratory: Lungs have equal breath sounds bilaterally, clear to auscultation and percussion. No rales, rhonchi or wheezes noted. No increased work of breathing, no retractions or nasal flaring. Abdomen/GI: Soft, non-tender, with normal bowel sounds. No distension or tympany. No guarding or rebound. No evidence of tenderness throughout. Back: No spinal tenderness. No costovertebral tenderness. Full range of motion. Female : Normal external genitalia. Skin: Warm, dry with normal turgor. Normal color with no rashes, no lesions, and no evidence of cellulitis. MS/ Extremity: Pulses equal, no cyanosis. Neurovascular intact. Full, normal range of motion. Neuro: Awake and alert, GCS 15, oriented to person, place, time, and situation. Cranial nerves II-XII grossly intact. Motor strength 5/5 in all extremities. Sensory grossly intact. Cerebellar exam normal. Normal gait. Psych: Awake, alert, with orientation to person, place and time. Behavior, mood, and affect are within normal limits. 14:07 ECG was reviewed by the Attending Physician. [facility] Vital Signs: 12:27 BP 188 / 86; Pulse 62; Resp 16 S; Temp 98.3(TE); Pulse Ox 98% on R/A; Weight 81.65 kg ca1 (R); Height 5 ft. 0 in. (152.40 cm) (R); Pain 0/10; 13:44 BP 172 / 81; Pulse 62; Resp 15; Pulse Ox 99% ; rb3 14:30 BP 181 / 66; Pulse 55; Resp 14; Pulse Ox 100% ; rb3 15:29 BP 183 / 69; Pulse 58; Resp 15; Pulse Ox 99% ; rb3 12:27 Body Mass Index 35.15 (81.65 kg, 152.40 cm) ca1 MDM: 12:54 Patient medically screened. [facility] 14:02 Differential diagnosis: hypertensive crisis, Malignant HTN. Data reviewed: vital signs, [facility] nurses notes, lab test result(s), EKG, radiologic studies, plain films. Data interpreted: athletic monitor: rate is 62 beats/min, rhythm is regular, Pulse oximetry: on room air is 98 %. Test interpretation: by ED physician or midlevel provider: ECG, plain radiologic studies. 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 07/09 12:50 Order name: Basic Metabolic Panel [facility] 07/09 12:50 Order name: CBC with Diff [facility] 07/09 12:50 Order name: LFT's [facility] 07/09 12:50 Order name: Magnesium; Complete Time: 15:20 [facility] 07/09 12:50 Order name: NT PRO-BNP; Complete Time: 15:20 [facility] 07/09 12:50 Order name: PT-INR; Complete Time: 14:32 [facility] 07/09 12:50 Order name: Troponin (emerg Dept Use Only); Complete Time: 15:20 [facility] 07/09 12:50 Order name: XRAY Chest (1 view); Complete Time: 14:16 [facility] 07/09 12:50 Order name: EKG; Complete Time: 12:51 [facility] 07/09 12:50 Order name: Cardiac monitoring; Complete Time: 13:55 [facility] 07/09 12:51 Order name: Basic Metabolic Panel; Complete Time: 15:20 EDCT 07/09 12:51 Order name: CBC with Automated Diff; Complete Time: 14:58 EDMS 07/09 12:51 Order name: Liver (Hepatic) Function; Complete Time: 15:20 [facility] 07/09 14:14 Order name: Urine Dipstick--Ancillary (enter results) 07/09 12:50 Order name: EKG - Nurse/Tech; Complete Time: 13:51 [facility] 07/09 12:50 Order name: IV Saline Lock; Complete Time: 13:50 [facility] 07/09 12:50 Order name: Labs collected and sent; Complete Time: 13:51 [facility] 07/09 12:50 Order name: O2 Per Protocol; Complete Time: 13:51 [facility] 07/09 12:50 Order name: O2 Sat Monitoring; Complete Time: 13:51 [facility] 07/09 12:51 Order name: Urine Dipstick-Ancillary (obtain specimen); Complete Time: 13:54 [facility] 07/09 15:21 Order name: PO challenge: water; Complete Time: 17:01 [facility] EC:07 Rate is 64 beats/min. Rhythm is regular. QRS Wadley is Normal. MD interval is normal. QRS soledad interval is normal. QT interval is normal. No Q waves. T waves are Normal. No ST changes noted. Clinical impression: Normal ECG and No evidence of ischemia. Interpreted by me. Reviewed by me. Administered Medications: No medications were administered Disposition: 07/09/20 14:13 Discharged to Home. Impression: Essential (primary) hypertension. - Condition is Stable. - Discharge Instructions: Hypertension, Hypertension, [id number], How to Take Your Blood Pressure, [id number], Aspirin and Your Heart, Managing Your Hypertension. - Medication Reconciliation Form, Thank You Letter, Antibiotic Education, Prescription Opioid Use form. - Follow up: Asif Hill; When: 2 - 3 days; Reason: Recheck today's complaints, Continuance of care, Re-evaluation by your physician. Follow up: Rich Connolly; When: 2 - 3 days; Reason: Recheck today's complaints, Continuance of care, Re-evaluation by your physician. - Problem is new. - Symptoms have improved. Signatures: Dispatcher [employer] EDGonzales Antoine MD MD cha Acob, Cheryl RN Sandi Mayo RN RN zb Corrections: (The following items were deleted from the chart) 15:52 14:13 07/09/2020 14:13 Discharged to Home. Impression: Essential (primary) zb hypertension. Condition is Stable. Discharge Instructions: Hypertension, Hypertension, [id number], How to Take Your Blood Pressure, Dohv-ba-[id number], Aspirin and Your Heart, Managing Your Hypertension. Forms are Medication Reconciliation Form, Thank You Letter, Antibiotic Education, Prescription Opioid Use. Follow up: Asif Hill; When: 2 - 3 days; Reason: Recheck today's complaints, Continuance of care, Re-evaluation by your physician. Follow up: Rich Connolly; When: 2 - 3 days; Reason: Recheck today's complaints, Continuance of care, Re-evaluation by your physician. Problem is new. Symptoms have improved. soledad
[2020-07-09 14:16] LABS: Protime INR 0.93
[2020-07-09 14:34] LABS: ALT/SGPT 31 U/L (12-78); Albumin 3.8 g/dL (3.4-5.0); Alkaline Phosphatase 75 U/L (45-117); BUN Blood Urea Nitrogen 20 mg/dL (7-18); Bicarbonate 30 mmol/L (21-32); Bilirubin Direct < 0.1 mg/dL (0-0.2); Bilirubin Total 0.5 mg/dL (0.2-1.0); Glucose Level 89 mg/dL (74-106); NT PRO-BNP 442 pg/mL (<450); Protein, Total 8.1 g/dL (6.4-8.2); Sodium Level 133 mmol/L (136-145); Troponin (Emerg Dept Use Only) < 0.02 ng/mL (0.0-0.045)
[2020-07-09 14:42] LABS: Absolute Lymphocytes (CBC) 3.2 K/uL (0.7-4.9); Basophils % 0.4 % (0-1.3); Hematocrit 43.4 % (36.0-45.0); Lymphocytes % 36.7 % (15.3-44.8); MPV 9.4 fL (7.6-11.3); RBC Red Blood Cell Count 4.82 M/uL (3.86-4.86)
[2020-07-09 14:46] LABS: AST/SGOT 49 U/L (15-37); Magnesium 2.1 mg/dL (1.8-2.4); Potassium 5.2 mmol/L (3.5-5.1)
[2020-07-09 15:56] VITALS: TEMP 98.3
[2020-07-09 15:58] VITALS: BP 181/66; O2SAT 100
[2020-07-09 20:08] LABS: Urine Blood TRACE (NEG); Urine Glucose NEGATIVE (NEG); Urine Protein 2+ (NEG)
== END 2020-07-09 15:52 | disposition home or self-care (01) ==
LOC: ER 12:16
DX: I10 Essential (primary) hypertension (principal); E78.00 Pure hypercholesterolemia, unspecified; Z88.1 Allergy status to other antibiotic agents; Z88.2 Allergy status to sulfonamides; Z88.3 Allergy status to other anti-infective agents; Z88.5 Allergy status to narcotic agent
CPT/HCPCS: 36415; 71045; 80048; 80076; 81003; 83735; 83880; 84484; 85025; 85610; 93005; 99284

== ENCOUNTER 2023-03-05 13:53 | Emergency (ER) | payer OTHER ==
--- OUTSIDE RECORDS SUMMARY | 2023-03-05 13:55 | XMS REPORT | Continuity of Care Document ---
:1940 Author Organization [facility] t Address [address] [place] [id number] Care Team Providers Name Role Phone Unavailable Unavailable Unavailable Payers Payer Name Policy Type Policy Number Effective Date Expiration Date [facility] [id number] 2023 (MEDICARE 00:00:00 REPLACEMENT HMO) Problems This patient has no known problems. Allergies, Adverse Reactions, Alerts This patient has no known allergies or adverse reactions. Medications This patient has no known medications. Procedures This patient has no known procedures. Encounters Start End Encounter Admission Attending Care Care Encounter Source Date/Time Date/Time Type Type Clinicians Facility Department ID 2023-02-12 2023-02-12 Outpatient [facility] [id number] [facility] 00:00:00 00:00:00 [id number] Results This patient has no known results.
[2023-03-05] MEDS ORDERED: MECLIZINE HCL 12.5 MG TAB ONE (14:42)
[2023-03-05] MEDS ORDERED: NA CHLORIDE 0.9% 1,000 ML ONE (14:42)
--- NOTE | 2023-03-05 14:45 | RAD REPORT ---
EXAM DESCRIPTION: CT - Ct Stroke Brain Wo Cont - 03/05/2023 2:34 pm CLINICAL HISTORY: STROKE ALERT COMPARISON: Head Brain Wo Cont dated 02/14/2020 TECHNIQUE: Noncontrast head CT images were obtained without IV contrast. Multiplanar reformats were generated and reviewed. All CT scans are performed using dose optimization technique as appropriate and may include automated exposure control or mA/KV adjustment according to patient size. FINDINGS: No intracranial hemorrhage, mass, or edema. Midline structures are unremarkable. Normal ventricular caliber for age. Kohli-white matter differentiation is preserved, without evidence of acute infarct. No abnormal extra- axial fluid collections. Mastoid air cells and visualized portions of the paranasal sinuses are clear. No acute bony findings. IMPRESSION: No evidence of an acute intracranial process. The findings were communicated to Jt Bell on 03/05/2023 at 14:41 hours.
[2023-03-05 15:30] LABS: Absolute Lymphocytes (CBC) 2.9 K/uL (0.7-4.9); Hematocrit 45.3 % (36.0-45.0); Lymphocytes % 43.8 % (15.3-44.8); MCV 91.8 fL (80-100); MPV 8.3 fL (7.6-11.3); Platelets 218 thou/uL (152-406); RBC Red Blood Cell Count 4.93 M/uL (3.86-4.86)
[2023-03-05 15:32] LABS: Protime INR 0.89
--- NOTE | 2023-03-05 15:37 | RAD REPORT ---
EXAM DESCRIPTION: RADChest Single View03/05/2023 3:21 pm CLINICAL HISTORY: ataxia COMPARISON: Chest Pa And Lat (2 Views) dated 01/14/2023; Chest Single View dated 07/09/2020; Chest Sin gle View dated 02/25/2019; CHEST SINGLE VIEW dated 12/14/2009 TECHNIQUE: Portable AP view of the chest. FINDINGS: The lungs are clear. No pneumothorax or effusion. The cardiomediastinal contours are unre markable. IMPRESSION: No acute cardiopulmonary process.
[2023-03-05 16:27] LABS: Albumin 3.5 g/dL (3.4-5.0); Bilirubin Direct 0.1 mg/dL (0-0.2); Bilirubin Indirect, Calculated 0.2 mg/dL (0.2-0.8); Bilirubin Total 0.3 mg/dL (0.2-1.0); Magnesium 2.4 mg/dL (1.6-2.4); Potassium 4.3 mEq/L (3.5-5.1); Protein, Total 7.5 g/dL (6.4-8.2)
--- NOTE | 2023-03-05 16:48 | EDPHYS ---
Physician Documentation [facility] Name: Amy Wood Age: 82 yrs Sex: Female : 1940 Arrival Date: 03/05/2023 Time: 13:53 Bed 6 Private MD: ED Physician Jt Bell HPI: 03/05 14:26 This 82 yrs old Female presents to ER via Wheelchair with complaints of jr11 Dizziness. 14:26 Patient states that around noon she was getting up and when she got up she felt a sense jr11 of generalized weakness, lightheadedness, associated with a sensation of the room spinning. Patient felt like she had to hold on to the wall to ambulate. Patient states that she has been the same since it happened, denies any other neuro complaints, denies cardiac.. Historical: - Allergies: 14:07 Bactrim; mb9 14:07 Ciprofloxacin; mb9 14:07 Codeine; mb9 14:07 Doxycycline; mb9 14:07 Sulfa (Sulfonamide Antibiotics); mb9 14:10 Bactrim; cm10 14:10 Ciprofloxacin; cm10 14:10 Codeine; cm10 14:10 Doxycycline; cm10 14:10 Sulfa (Sulfonamide Antibiotics); cm10 - Home Meds: 14:07 spironolactone 25 mg Oral tab 1 tab 2 times per day [Active]; bisoprolol fumarate 5 mg mb9 Oral tab 1 tab TID [Active]; amlodipine oral [Active]; olmesartan Oral [Active]; 14:10 amlodipine oral [Active]; bisoprolol fumarate 5 mg Oral tab 1 tab TID [Active]; cm10 olmesartan Oral [Active]; spironolactone 25 mg Oral tab 1 tab 2 times per day [Active]; - PMHx: 14:07 High Cholesterol; Hypertension; mb9 14:10 High Cholesterol; Hypertension; cm10 - Immunization history:: Adult Immunizations unknown. - Social history:: Smoking status: Patient denies any tobacco usage or history of. Exam: 14:26 Constitutional: This is a well developed, well nourished patient who is awake, alert, jr11 and in no acute distress. Head/Face: Normocephalic, atraumatic. Chest/axilla: Normal chest wall appearance and motion. Nontender with no deformity. No lesions are appreciated. Cardiovascular: Regular rate and rhythm with a normal S1 and S2. No gallops, murmurs, or rubs. Normal PMI, no JVD. No pulse deficits. Respiratory: Lungs have equal breath sounds bilaterally, clear to auscultation and percussion. No rales, rhonchi or wheezes noted. No increased work of breathing, no retractions or nasal flaring. Abdomen/GI: Soft, non-tender, with normal bowel sounds. No distension or tympany. No guarding or rebound. No evidence of tenderness throughout. Back: No spinal tenderness. No costovertebral tenderness. Full range of motion. Skin: Warm, dry with normal turgor. Normal color with no rashes, no lesions, and no evidence of cellulitis. MS/ Extremity: Pulses equal, no cyanosis. Neurovascular intact. Full, normal range of motion. Neuro: Awake and alert, GCS 15, oriented to person, place, time, and situation. No gross motor or sensory deficits. NIHSS = 0 Vital Signs: 14:12 BP 156 / 64; Pulse 75; Resp 18; Temp 97.5; Pulse Ox 97% ; Weight 71.5 kg; cm10 15:02 BP 143 / 58; Pulse 68; Resp 16; Pulse Ox 98% ; ko1 16:24 BP 147 / 57; Pulse 64; Resp 18; Pulse Ox 97% on R/A; mb9 16:44 BP 135 / 56; Pulse 68; Pulse Ox 96% on R/A; hb MDM: 14:10 Patient medically screened. jr11 14:24 ED course: EKG interpreted by me shows normal sinus rhythm, normal axis, prolonged QRS jr11 at 120 with a right bundle branch morphology no acute ST changes. monitor car operator interpreted by me shows normal sinus rhythm rate of 75.. 14:26 Differential diagnosis: CVA, generalized weakness, vertigo. Data reviewed: vital signs, jr11 nurses notes. 15:07 ED course: Spoke to our radiologist, no acute stroke, CT per my read, no stroke. Pt jr11 feeling better and refuses thrombolytics at this time. 16:47 ED course: Pt feeling significantly better, considered admission, feels well and does jrMar not want to be admitted, she is ambulating w assistance and states that her friend will help her. I visited patient prior to discharge and reviewed pertinent lab and/or radiology findings noted above with patient. Plan for discharge reviewed and answered all questions. Patient appears well and is safe for discharge at this time. Patient instructed to return to ED if symptoms suddenly worsen or persist. Strong return precautions given with patient expressing acceptance and understanding of all instructions provided.. 03/05 14:23 Order name: Basic Metabolic Panel; Complete Time: 16:29 03/05 14:23 Order name: CBC with Diff; Complete Time: 15:43 03/05 14:23 Order name: Hepatic Function; Complete Time: 16:29 03/05 14:23 Order name: High Sensitivity Troponin; Complete Time: 16:29 03/05 14:23 Order name: Magnesium; Complete Time: 16:29 03/05 14:23 Order name: Protime (+inr); Complete Time: 15:43 03/05 14:23 Order name: Ptt, Activated; Complete Time: 15:43 03/05 14:23 Order name: CT Stroke Brain w/o Contrast; Complete Time: 15:04 03/05 14:23 Order name: Stroke CXR 1 View; Complete Time: 15:43 03/05 14:23 Order name: EKG; Complete Time: 14:24 03/05 14:23 Order name: Accucheck; Complete Time: 14:25 03/05 14:23 Order name: Cardiac monitoring; Complete Time: 14:25 03/05 14:23 Order name: EKG - Nurse/Tech; Complete Time: 14:25 03/05 14:23 Order name: IV Saline Lock; Complete Time: 15:15 03/05 14:23 Order name: Labs collected and sent; Complete Time: 15:15 03/05 14:23 Order name: NPO; Complete Time: 14:25 03/05 14:23 Order name: O2 Per Protocol; Complete Time: 14:25 03/05 14:23 Order name: O2 Sat Monitoring; Complete Time: 14:25 03/05 14:23 Order name: Stroke Swallow Screen; Complete Time: 14:40 03/05 15:41 Order name: Labs - recollect needed: recollect green top; Complete Time: 15:54 bd Administered Medications: 14:40 Drug: Meclizine PO 25 mg PO once Route: PO; mb9 15:45 Follow up: Response: No adverse reaction; Marked relief of symptoms 9 15:14 Drug: NS 0.9% IV 500 ml IV at 1000 ml once Route: IV; Rate: 1000 ml; Site: right mb9 forearm; Disposition Summary: 03/05/23 16:48 Discharge Ordered Notes: Location: Home [facility] Condition: Stable [facility] Diagnosis - Other peripheral vertigo jr11 - Dizziness and giddiness jr11 Discharge Instructions: - Discharge Summary Sheet jr11 - Dizziness jr11 - Vertigo 11 Forms: - Medication Reconciliation Form jr11 - Thank You Letter jr11 - Antibiotic Education 11 - Prescription Opioid Use 11 - Patient Portal Instructions jr11 - Leadership Thank You Letter jr11 Prescriptions: - Meclizine 25 mg Oral tablet - take 1 tablet ORAL route every 8 hours As needed prn dizziness; 30 tablet; jr11 Refills: 0, Product Selection Permitted - Zofran 4 mg Oral tablet - take 1 tablet ORAL route every 12 hours As needed prn nausea; 20 tablet; jr11 Refills: 0, Product Selection Permitted Signatures: Dispatcher [employer] Rain Lopez Jose, MD MD jr11 Katie Shahid RN RN mb9 Juanita Hanson RN RN cm10
--- NOTE | 2023-03-05 16:48 | ER ---
Nurse's Notes [facility] Name: Amy Wood Age: 82 yrs Sex: Female : 1940 Arrival Date: 03/05/2023 Time: 13:53 Bed 6 Private MD: Diagnosis: Other peripheral vertigo;Dizziness and giddiness Presentation: 03/05 14:12 Chief complaint: Patient states: dizziness onset today at noon. Pt reports that she cm10 feels like the room is spinning. No chest pain, no shortness of breath. Coronavirus screen: Vaccine status: Patient reports receiving the 2nd dose of the covid vaccine. Client denies travel out of the [place] in the last 14 days. Ebola Screen: Patient denies travel to an Ebola-affected area in the 21 days before illness onset. No symptoms or risks identified at this time. Initial Sepsis Screen: Does the patient meet any 2 criteria? No. Patient's initial sepsis screen is negative. Does the patient have a suspected source of infection? No. Patient's initial sepsis screen is negative. Risk Assessment: Do you want to hurt yourself or someone else? Patient reports no desire to harm self or others. 14:12 Method Of Arrival: Wheelchair cm10 14:14 Onset of symptoms was March 05, 2023. cm10 14:14 Acuity: GRIS 2 cm10 Triage Assessment: 14:13 General: Appears in no apparent distress. Behavior is calm, cooperative. Pain: Denies mb9 pain. EENT: No signs and/or symptoms were reported regarding the EENT system. Neuro: Reports dizziness. Neuro: Bueno Agitation-Sedation Scale (RASS): 0 - Alert and Calm Level of Consciousness is awake, alert, obeys commands, Oriented to person, place, time, situation, Appropriate for age Backing In Machine Tender are equal bilaterally Moves all extremities. Gait is steady, Speech is normal, Facial symmetry appears normal, Pupils are PERRLA, Intact. Cardiovascular: Heart tones S1 S2 present Patient's skin is warm and dry. Respiratory: Airway is patent Respiratory effort is even, unlabored, Respiratory pattern is regular, symmetrical, Breath sounds are clear bilaterally. GI: Abdomen is round non-distended, Bowel sounds present X 4 quads. Abd is soft and non tender X 4 quads. : No signs and/or symptoms were reported regarding the genitourinary system. Derm: Skin is pink, warm \\T\\ dry. Musculoskeletal: Range of motion: intact in all extremities. Historical: - Allergies: 14:07 Bactrim; mb9 14:07 Ciprofloxacin; mb9 14:07 Codeine; mb9 14:07 Doxycycline; mb9 14:07 Sulfa (Sulfonamide Antibiotics); mb9 14:10 Bactrim; cm10 14:10 Ciprofloxacin; cm10 14:10 Codeine; cm10 14:10 Doxycycline; cm10 14:10 Sulfa (Sulfonamide Antibiotics); cm10 - Home Meds: 14:07 spironolactone 25 mg Oral tab 1 tab 2 times per day [Active]; bisoprolol fumarate 5 mg mb9 Oral tab 1 tab TID [Active]; amlodipine oral [Active]; olmesartan Oral [Active]; 14:10 amlodipine oral [Active]; bisoprolol fumarate 5 mg Oral tab 1 tab TID [Active]; cm10 olmesartan Oral [Active]; spironolactone 25 mg Oral tab 1 tab 2 times per day [Active]; - PMHx: 14:07 High Cholesterol; Hypertension; mb9 14:10 High Cholesterol; Hypertension; cm10 - Immunization history:: Adult Immunizations unknown. - Social history:: Smoking status: Patient denies any tobacco usage or history of. Screenin:14 [facility] ED Fall Risk Assessment (Adult) History of falling in the last 3 months, mb9 including since admission No falls in past 3 months (0 pts) Confusion or Disorientation No (0 pts) Intoxicated or Sedated No (0 pts) Impaired Gait No (0 pts) Mobility Assist Device Used No (0 pt) Altered Elimination No (0 pt) Score/Fall Risk Level 0 - 2 = Low Risk Oriented to surroundings, Maintained a safe environment, Educated pt \\T\\ family on fall prevention, incl call for assistance when getting out of bed. Abuse screen: Denies threats or abuse. Nutritional screening: No deficits noted. Tuberculosis screening: No symptoms or risk factors identified. Assessment: 14:15 Reassessment: see triage assessment. mb9 14:40 Reassessment: Pt passed Stroke Swallow Screen. ERP notified. mb9 15:30 Reassessment: No changes from previously documented assessment. Patient and/or family mb9 updated on plan of care and expected duration. Pain level reassessed. Patient is alert, oriented x 3, equal unlabored respirations, skin warm/dry/pink. 16:42 Reassessment: Pt ambulated in hallway with assistance, pt reports feeling "a little hb dizzy still, but much better than before" and expressed strong desire to go home with family, has family member that can stay with her tonight. Dr. Bell notified. Vital Signs: 14:12 BP 156 / 64; Pulse 75; Resp 18; Temp 97.5; Pulse Ox 97% ; Weight 71.5 kg; cm10 15:02 BP 143 / 58; Pulse 68; Resp 16; Pulse Ox 98% ; ko1 16:24 BP 147 / 57; Pulse 64; Resp 18; Pulse Ox 97% on R/A; mb9 16:44 BP 135 / 56; Pulse 68; Pulse Ox 96% on R/A; hb ED Course: 13:56 Patient arrived in ED. mg5 13:59 Jose He MD is Attending Physician. ec2 13:59 Attending Physician role handed off by Jose He MD jr11 13:59 Jt Bell MD is Attending Physician. jr11 14:05 Katie Shahid, MARIEL is Primary Nurse. mb9 14:07 Arm band placed on. mb9 14:14 Triage completed. cm10 14:15 Placed in gown. Bed in low position. Call light in reach. Side rails up X 1. Client mb9 placed on continuous cardiac and pulse oximetry monitoring. NIBP monitoring applied. clinical research monitor on. Door closed. Noise minimized. Warm blanket given. 14:15 No provider procedures requiring assistance completed. EKG done, by ED staff, reviewed mb9 by Jt Bell MD. 14:35 CT Stroke Brain w/o Contrast In Process Unspecified. EDMS 15:00 Inserted saline lock: 24 gauge in right forearm, using aseptic technique. Blood mb9 collected. 15:15 Basic Metabolic Panel Sent. mb9 15:15 CBC with Diff Sent. mb9 15:15 Hepatic Function Sent. mb9 15:15 High Sensitivity Troponin Sent. mb9 15:15 Magnesium Sent. mb9 15:15 Protime (+inr) Sent. mb9 15:15 Ptt, Activated Sent. mb9 15:20 Stroke CXR 1 View In Process Unspecified. EDMS 16:31 Report given to MARIEL Chan. mb9 17:10 IV discontinued, intact, bleeding controlled, No redness/swelling at site. hb Administered Medications: 14:40 Drug: Meclizine PO 25 mg PO once Route: PO; mb9 15:45 Follow up: Response: No adverse reaction; Marked relief of symptoms mb9 15:14 Drug: NS 0.9% IV 500 ml IV at 1000 ml once Route: IV; Rate: 1000 ml; Site: right mb9 forearm; Medication: 14:15 VIS not applicable for this client. mb9 Outcome: 16:48 Discharge ordered by . jr11 17:10 Discharged to home via wheelchair, with family, 17:10 Condition: stable 17:10 Discharge instructions given to patient, family, Instructed on discharge instructions, follow up and referral plans. medication usage, Demonstrated understanding of instructions, follow-up care, medications, Prescriptions given X 2, 17:10 Patient left the ED. Signatures: Dispatcher [employer] EDRocio Brown, MARIEL RN Jt Bell MD MD jr11 Makayla Veliz RN RN ko1 Katie Shahid RN RN mb9 Juanita Hanson RN RN cm10 Beatris Cho mg5 Jose He MD MD ec2
[2023-03-05 17:15] VITALS: TEMP 97.5
[2023-03-05 17:20] VITALS: BP 135/56; O2SAT 96
--- NOTE | 2023-03-06 17:23 | EKG ---
Test Date: 2023-03-05 Test Time: 14:19:02 Pattern Molder: RAFFI MEASUREMENT RESULTS: Intervals: Rate: 64 [place]: 174 QRSD: 120 QT: 442 QTc: 455 [place]: P: 50 [place]: 174 QRS: 52 T: 21 INTERPRETIVE STATEMENTS: Normal sinus rhythm Right bundle branch block Abnormal ECG Compared to ECG 07/09/2020 12:39:16 No significant changes Electronically Signed On 03-06-23 17:20:20 DRIFTMAN by Rich Connolly
== END 2023-03-05 17:10 | disposition home or self-care (01) ==
LOC: ER 13:53
DX: H81.399 Other peripheral vertigo, unspecified ear (principal); I10 Essential (primary) hypertension; Z88.1 Allergy status to other antibiotic agents; Z88.2 Allergy status to sulfonamides; Z88.5 Allergy status to narcotic agent
CPT/HCPCS: 93005; 85025; 80048; 36415; 83735; 85610; 80076; 85730; 84484; 70450; 71045; 99285; J8597; J7030

== ENCOUNTER 2023-03-28 12:59 | Emergency (ER) | payer OTHER ==
[2023-03-28 13:50] LABS: SARS-CoV-2 Antigen Rapid Res Negative (Negative)
--- NOTE | 2023-03-28 13:59 | RAD REPORT ---
EXAM DESCRIPTION: RADChest Single View03/28/2023 1:52 pm CLINICAL HISTORY: MALAISE COMPARISON: Chest Single View dated 03/05/2023; Chest Pa And Lat (2 Views) dated 01/14/2023; Chest Si ngle View dated 07/09/2020; Chest Single View dated 02/25/2019 TECHNIQUE: Portable AP view of the chest. FINDINGS: The lungs are clear. Platelike peripheral left lower lung atelectasis. No pneumothorax or effusion. The cardiomediastinal contours are unremarkable. IMPRESSION: No acute cardiopulmonary process.
[2023-03-28] MEDS ORDERED: KETOROLAC 30 MG/ML INJ ONE (15:50)
[2023-03-28 16:27] LABS: Albumin 3.6 g/dL (3.4-5.0); Bilirubin Direct 0.2 mg/dL (0-0.2); Bilirubin Indirect, Calculated 0.5 mg/dL (0.2-0.8); Bilirubin Total 0.7 mg/dL (0.2-1.0); Magnesium 2.4 mg/dL (1.6-2.4); Potassium 4.6 mEq/L (3.5-5.1); Protein, Total 8.1 g/dL (6.4-8.2); Troponin High Sensitivity 6.5 pg/mL (<58.9)
--- NOTE | 2023-03-28 16:41 | ER ---
Nurse's Notes [facility] Name: Amy Wood Age: 82 yrs Sex: Female : 1940 Arrival Date: 03/28/2023 Time: 12:59 Bed 13 Private MD: Diagnosis: Back pain, muscle strain Presentation: 03/28 13:17 Chief complaint: Patient states: Just not feeling well and pain from neck to buttocks ll1 and chest, started this AM. No fever. Pain to trunk area, denies extremity pain. Coronavirus screen: Vaccine status: Patient reports receiving the 2nd dose of the covid vaccine. Client denies travel out of the [place] in the last 14 days. Ebola Screen: Patient denies travel to an Ebola-affected area in the 21 days before illness onset. Initial Sepsis Screen: Does the patient meet any 2 criteria? No. Patient's initial sepsis screen is negative. Initial Sepsis Screen: Does the patient meet any 2 criteria? Does the patient have a suspected source of infection? No. Patient's initial sepsis screen is negative. Risk Assessment: Do you want to hurt yourself or someone else? Patient reports no desire to harm self or others. Onset of symptoms was March 28, 2023. 13:17 Method Of Arrival: Wheelchair ll1 13:17 Acuity: GRIS 3 ll1 Triage Assessment: 13:21 General: Appears uncomfortable, ill, Behavior is calm, cooperative, appropriate for ll1 age. General: Reports feeling ill for fatigue for. Pain: Complains of pain in all over Quality of pain is described as aching. Musculoskeletal: Reports pain in all over. Historical: - Allergies: 13:17 Bactrim; ll1 13:17 Ciprofloxacin; ll1 13:17 Codeine; ll1 13:17 Doxycycline; ll1 13:17 Sulfa (Sulfonamide Antibiotics); ll1 - PMHx: 13:17 High Cholesterol; Hypertension; ll1 - PSHx: 13:17 None; ll1 - Immunization history:: Adult Immunizations up to date. - Social history:: Smoking status: Patient denies any tobacco usage or history of. Screenin:00 [facility] ED Fall Risk Assessment (Adult) Score/Fall Risk Level 0 - 2 = Low Risk. Abuse eh3 screen: Denies threats or abuse. Denies injuries from another. Nutritional screening: No deficits noted. Tuberculosis screening: No symptoms or risk factors identified. Assessment: 13:24 Reassessment: Dr. Rodriguez in triage assessing patient. ll1 14:00 General: Appears in no apparent distress. uncomfortable, Behavior is cooperative, eh3 appropriate for age, anxious. Pain: Complains of pain in back. Neuro: Level of Consciousness is awake, alert, obeys commands, Oriented to person, place, time, situation. Cardiovascular: Capillary refill < 3 seconds Patient's skin is warm and dry. Respiratory: Airway is patent Respiratory effort is even, unlabored, Respiratory pattern is regular, symmetrical. GI: Abdomen is round non-distended. Derm: Skin is pink, warm \T\ dry. Musculoskeletal: Circulation, motion, and sensation intact. 15:00 Reassessment: Patient appears in no apparent distress at this time. Patient and/or eh3 family updated on plan of care and expected duration. Pain level reassessed. Patient is alert, oriented x 3, equal unlabored respirations, skin warm/dry/pink. 16:00 Reassessment: Patient appears in no apparent distress at this time. Patient and/or eh3 family updated on plan of care and expected duration. Pain level reassessed. Patient is alert, oriented x 3, equal unlabored respirations, skin warm/dry/pink. 17:00 Reassessment: Patient appears in no apparent distress at this time. Patient and/or eh3 family updated on plan of care and expected duration. Pain level reassessed. Patient is alert, oriented x 3, equal unlabored respirations, skin warm/dry/pink. Vital Signs: 13:17 BP 129 / 62; Pulse 78; Resp 18; Temp 97.4; Pulse Ox 95% ; Weight 81.65 kg; Height 5 ft. ll1 1 in. ; Pain 10/10; 14:00 BP 139 / 69; Pulse 80; Resp 18; Pulse Ox 95% on R/A; eh3 15:00 BP 135 / 68; Pulse 81; Resp 20; Pulse Ox 95% on R/A; eh3 16:00 BP 137 / 60; Pulse 79; Resp 20; Pulse Ox 95% on R/A; iw 17:00 BP 128 / 72; Pulse 75; Resp 18; Pulse Ox 95% on R/A; iw 13:17 Body Mass Index 34.01 (81.65 kg, 154.94 cm) ll1 13:17 Pain Scale: Adult ll1 ED Course: 13:00 Patient arrived in ED. rg4 13:09 Solitario Rodriguez MD is Attending Physician. sp3 13:16 Arm band placed on. ll1 13:21 Triage completed. ll1 13:29 Flu Sent. iw 13:29 SARS RAPID Sent. iw 13:45 Missed attempt(s): 22 gauge in right antecubital area. Bleeding controlled, band aid eh3 applied, catheter tip intact. 13:53 XRAY Chest (1 view) In Process Unspecified. EDMS 14:00 Patient has correct armband on for positive identification. Bed in low position. Call eh3 light in reach. Side rails up X2. Adult w/ patient. Provided Education on: use of call co[place], fall precautions. Client placed on continuous cardiac and pulse oximetry monitoring. NIBP monitoring applied. 14:48 Katy Casillas RN is Primary Nurse. eh3 17:35 No provider procedures requiring assistance completed. eh3 17:35 IV discontinued, intact, bleeding controlled, No redness/swelling at site. Pressure eh3 dressing applied. Administered Medications: 15:56 Drug: Ketorolac IVP 15 mg IVP once Route: IVP; Site: right hand; iw 16:20 Follow up: Response: No adverse reaction; Pain is decreased iw 17:02 Drug: HYDROmorphone IVP 0.5 mg IVP once Route: IVP; Site: left wrist; iw 17:30 Follow up: Response: No adverse reaction; Pain is decreased; RASS: Alert and Calm (0) eh3 Medication: 17:35 VIS not applicable for this client. eh3 Outcome: 16:41 Discharge ordered by . sp3 17:39 Discharged to home via wheelchair, with friend, eh3 17:39 Condition: stable 17:39 Discharge instructions given to patient, friend, Instructed on discharge instructions, follow up and referral plans. medication usage, Demonstrated understanding of instructions, follow-up care, medications, Prescriptions given X 1, 17:40 Patient left the ED. iw Signatures: Dispatcher [employer] EDMS Renee Morelos RN RN iw Giselle Gandara rg4 Rupert Ling RN RN 1 Solitario Rodriguez MD MD sp3 Casillas, Katy, RN RN eh3 Corrections: (The following items were deleted from the chart) 13:21 13:17 BP 129 / 62; Pulse 78bpm; Resp 18bpm; Pulse Ox 94%; Temp 97.4F; 81.65 kg; Height ll1 5 ft. 1 in.; BMI: 34.0; Pain 10, Adult; ll1 13:26 13:17 Chief complaint: Patient states: Just not feeling well and pain all over started ll1 this AM. No fever ll1 19:39 17:39 Discharge instructions given to patient, friend, Instructed on discharge eh3 instructions, follow up and referral plans. medication usage, Demonstrated understanding of instructions, follow-up care, medications, Prescriptions given X 2, eh3
--- NOTE | 2023-03-28 16:41 | EDPHYS ---
Physician Documentation [facility] Name: Amy Wood Age: 82 yrs Sex: Female : 1940 Arrival Date: 03/28/2023 Time: 12:59 Bed 13 Private MD: ED Physician Solitario Rodriguez HPI: 03/28 14:39 This 82 yrs old Female presents to ER via Wheelchair with complaints of Pain sp3 All Over. 14:39 82-year-old female with history of hyperlipidemia, hypertension presents to the ED with sp3 chief complaint neck and entire upper back pain secondary to sleeping upright last night. Patient states that she does not normally sleep in this position and awoke with these muscle cramp type symptoms. She denies any chest pain, shortness of breath, abdominal pain, lower back pain, syncope, near syncope, fever, URI symptoms, neurological symptoms, weakness, any other signs or symptoms on ROS at this time.. Historical: - Allergies: 13:17 Bactrim; ll1 13:17 Ciprofloxacin; ll1 13:17 Codeine; ll1 13:17 Doxycycline; ll1 13:17 Sulfa (Sulfonamide Antibiotics); ll1 - PMHx: 13:17 High Cholesterol; Hypertension; ll1 - PSHx: 13:17 None; ll1 - Immunization history:: Adult Immunizations up to date. - Social history:: Smoking status: Patient denies any tobacco usage or history of. ROS: 14:40 Constitutional: Negative for fever, chills, and weight loss, Eyes: Negative for injury, sp3 pain, redness, and discharge, ENT: Negative for injury, pain, and discharge, Neck: Negative for injury, pain, and swelling, Cardiovascular: Negative for chest pain, palpitations, and edema, Respiratory: Negative for shortness of breath, cough, wheezing, and pleuritic chest pain, Abdomen/GI: Negative for abdominal pain, nausea, vomiting, diarrhea, and constipation, Skin: Negative for injury, rash, and discoloration, Neuro: Negative for headache, weakness, numbness, tingling, and seizure, Psych: Negative for depression, anxiety, suicide ideation, homicidal ideation, and hallucinations, Allergy/Immunology: Negative for hives, rash, and allergies, Endocrine: Negative for neck swelling, polydipsia, polyuria, polyphagia, and marked weight changes, 14:40 All other systems are negative, Exam: 14:40 Constitutional: This is a well developed, well nourished patient who is awake, alert, sp3 and in no acute distress. Head/Face: Normocephalic, atraumatic. Eyes: Pupils equal round and reactive to light, extra-ocular motions intact. Lids and lashes normal. Conjunctiva and sclera are non-icteric and not injected. Cornea within normal limits. Periorbital areas with no swelling, redness, or edema. ENT: Nares patent. No nasal discharge, no septal abnormalities noted. External auditory canals are clear. Oropharynx with no redness, swelling, or masses, exudates, or evidence of obstruction, uvula midline. Mucous membranes moist. Neck: Trachea midline, no thyromegaly or masses palpated, and no cervical lymphadenopathy. Supple, full range of motion without nuchal rigidity, or vertebral point tenderness. No Meningismus. Chest/axilla: Normal chest wall appearance and motion. Nontender with no deformity. No lesions are appreciated. Cardiovascular: Regular rate and rhythm with a normal S1 and S2. No gallops, murmurs, or rubs. Normal PMI, no JVD. No pulse deficits. Respiratory: Lungs have equal breath sounds bilaterally, clear to auscultation and percussion. No rales, rhonchi or wheezes noted. No increased work of breathing, no retractions or nasal flaring. Abdomen/GI: Soft, non-tender, with normal bowel sounds. No distension or tympany. No guarding or rebound. No evidence of tenderness throughout. Skin: Warm, dry with normal turgor. Normal color with no rashes, no lesions, and no evidence of cellulitis. MS/ Extremity: Pulses equal, no cyanosis. Neurovascular intact. Full, normal range of motion. Neuro: Awake and alert, GCS 15, oriented to person, place, time, and situation. Cranial nerves II-XII grossly intact. Motor strength 5/5 in all extremities. Sensory grossly intact. Cerebellar exam normal. Normal gait. Psych: Awake, alert, with orientation to person, place and time. Behavior, mood, and affect are within normal limits. 14:40 Back: Mild pain to palpation diffusely without any bony tenderness. Vital signs are completely normal., 14:42 ECG was reviewed by the Attending Physician. EKG demonstrates normal sinus rhythm at 80 sp3 bpm with normal intervals, incomplete right bundle branch block, nonspecific diffuse ST/T changes without evidence of acute ischemia. Vital Signs: 13:17 BP 129 / 62; Pulse 78; Resp 18; Temp 97.4; Pulse Ox 95% ; Weight 81.65 kg; Height 5 ft. ll1 1 in. ; Pain 10/10; 14:00 BP 139 / 69; Pulse 80; Resp 18; Pulse Ox 95% on R/A; eh3 15:00 BP 135 / 68; Pulse 81; Resp 20; Pulse Ox 95% on R/A; eh3 16:00 BP 137 / 60; Pulse 79; Resp 20; Pulse Ox 95% on R/A; iw 17:00 BP 128 / 72; Pulse 75; Resp 18; Pulse Ox 95% on R/A; iw 13:17 Body Mass Index 34.01 (81.65 kg, 154.94 cm) ll1 13:17 Pain Scale: Adult ll1 MDM: 13:27 Patient medically screened. sp3 14:41 Data reviewed: vital signs, nurses notes, lab test result(s), EKG, radiologic studies. sp3 ED course: 82-year-old female with upper back pain secondary to potential musculoskeletal misalignment on sleep last night. Differential diagnosis includes muscle strain, rhabdomyolysis, muscle ache, among others. I am not highly suspicious for acute coronary syndrome, aortic pathology including dissection and/or aneurysm, pulmonary embolism, pneumonia, sepsis, shock, GI pathology, pyelonephritis/UTI, or any other critical process or pathology at this time. Workup will include chest x-ray, EKG, laboratory values and general observation with final disposition pending workup and patient course.. 16:40 ED course: Partial laboratory values reviewed except for CBC and PT/INR. Chemistries sp3 are normal and CK is also normal. Swabs are negative and chest x-ray is normal. This time I strongly believe this is musculoskeletal and we will administer 1 more dose of pain medicine and safely discharge her home. Follow-up with PCP as needed.. 03/28 13:27 Order name: Basic Metabolic Panel; Complete Time: 16:39 sp3 03/28 13:27 Order name: LFT's; Complete Time: 16:39 sp3 03/28 13:27 Order name: Magnesium; Complete Time: 16:39 sp3 03/28 13:27 Order name: NT PRO-BNP; Complete Time: 16:39 sp3 03/28 13:27 Order name: Troponin HS; Complete Time: 16:39 sp3 03/28 13:27 Order name: CK; Complete Time: 16:39 sp3 03/28 13:27 Order name: Flu; Complete Time: 14:22 sp3 03/28 13:27 Order name: SARS RAPID; Complete Time: 14:22 sp3 03/28 13:27 Order name: XRAY Chest (1 view); Complete Time: 14:22 sp3 03/28 13:27 Order name: EKG; Complete Time: 13:28 sp3 03/28 13:27 Order name: Cardiac monitoring; Complete Time: 14:48 sp3 03/28 13:27 Order name: EKG - Nurse/Tech; Complete Time: 14:48 sp3 03/28 13:27 Order name: IV Saline Lock; Complete Time: 15:59 sp3 03/28 13:27 Order name: O2 Per Protocol; Complete Time: 14:48 sp3 03/28 13:27 Order name: O2 Sat Monitoring; Complete Time: 14:48 sp3 Administered Medications: 15:56 Drug: Ketorolac IVP 15 mg IVP once Route: IVP; Site: right hand; iw 16:20 Follow up: Response: No adverse reaction; Pain is decreased iw 17:02 Drug: HYDROmorphone IVP 0.5 mg IVP once Route: IVP; Site: left wrist; iw 17:30 Follow up: Response: No adverse reaction; Pain is decreased; RASS: Alert and Calm (0) eh3 Disposition Summary: 03/28/23 16:41 Discharge Ordered Notes: Location: Home sp3 Condition: Stable sp3 Diagnosis - Back pain, muscle strain sp3 Followup: sp3 - With: Private Physician - When: Upon discharge from the Emergency Department - Reason: Continuance of care Discharge Instructions: - Discharge Summary Sheet sp3 - Muscle Strain sp3 Forms: - Medication Reconciliation Form sp3 - Thank You Letter sp3 - Antibiotic Education sp3 - Prescription Opioid Use sp3 - Patient Portal Instructions sp3 - Leadership Thank You Letter sp3 Prescriptions: - Diclofenac Sodium 75 mg Oral Tablet Sustained Release - take 1 tablet ORAL route 2 times per day; 30 tablet; Refills: 0, Product sp3 Selection Permitted Signatures: Dispatcher [employer] Renee Salas RN RN iw Rupert Ling RN RN ll1 Solitario Rodriguez MD MD sp3 Katy Casillas RN eh3 Corrections: (The following items were deleted from the chart) 16:49 13:27 Labs collected and sent ordered. sp3 iw
[2023-03-28] MEDS ORDERED: HYDROMORPHONE HCL 0.5 MG/0.5 ML INJ ONE (17:06)
[2023-03-28 18:00] VITALS: TEMP 97.4; O2SAT 95
[2023-03-28 18:05] VITALS: BP 128/72
--- NOTE | 2023-04-02 14:02 | EKG ---
Test Date: 2023-03-28 Test Time: 14:31:29 Satellite Tv Technician Installer: [employer] MEASUREMENT RESULTS: Intervals: Rate: 80 OH: 168 QRSD: 122 QT: 388 QTc: 447 [place]: P: 64 OH: 168 QRS: 61 T: 23 INTERPRETIVE STATEMENTS: Normal sinus rhythm Right bundle branch block Abnormal ECG Compared to ECG 03/05/2023 14:19:02 No significant changes Electronically Signed On 04-02-23 13:45:54 SECONDARY SCHOOL TEACHER LIBRARIAN by Rich Connolly
== END 2023-03-28 17:40 | disposition home or self-care (01) ==
LOC: ER 12:59
DX: S29.012A Strain of muscle and tendon of back wall of thorax, initial encounter (principal); I10 Essential (primary) hypertension; Z11.52 Encounter for screening for COVID-19; Z88.1 Allergy status to other antibiotic agents; Z88.2 Allergy status to sulfonamides; Z88.5 Allergy status to narcotic agent
CPT/HCPCS: 93005; 80048; 36415; 83735; 82550; 80076; 84484; 83880; 87804 ×2; 71045; 99284; 87811; J1170

== ENCOUNTER 2024-12-10 15:46 | Emergency (ER) | payer OTHER ==
--- NOTE | 2024-12-10 16:59 | RAD REPORT ---
EXAMINATION: Head Brain Wo Cont CLINICAL INDICATION: Female, 84 years old.DIZZINESS TECHNIQUE: Axial CT images from the skull base to the vertex without intravenous contrast. Coronal an d sagittal reformatted images were created from the data set. One or more of the following dose reduction techniques were used: Automated exposure control, adjustment of the mA and/or kV according to patient size, and/or iterative reconstruction. Unless otherwise specified, incidental findings do not require dedicated imaging follow-up. [id number]. COMPARISON: No prior exams FINDINGS: INTRACRANIAL: No acute intracranial hemorrhage. No acute large vascular territory infarct. No hydroce phalus. No mass effect or midline shift. No significant white matter disease.Mild cerebral atrophy. VASCULATURE: No visualized abnormalities in the arteries or dural venous sinuses. SCALP/SKULL: No calvarial fracture identified. No acute soft tissue abnormality. SINUSES: The visualized paranasal sinuses are mostly clear. No significant mastoid fluid. IMPRESSION: No acute intracranial abnormality.
--- NOTE | 2024-12-10 17:12 | RAD REPORT ---
EXAM: Chest Single View HISTORY: 84 years Female dizziness COMPARISON: 10/20/2023 FINDINGS: LUNGS/PLEURA: The lungs are clear. No pleural effusions or pneumothorax. No pulmonary edema. CARDIAC/MEDIASTINUM: Mild cardiomegaly UPPER ABDOMEN: No significant abnormality. BONES: No acute abnormality. LINES/TUBES/OTHER: N/A IMPRESSION: No evidence of acute cardiopulmonary disease.
[2024-12-10 18:25] LABS: Absolute Lymphocytes (CBC) 2.8 K/uL (0.7-4.9); Hematocrit 44.8 % (36.0-45.0); Hemoglobin 15.4 g/dL (12.0-15.0); MCH 31.4 pg (27.0-35.0); MCHC 34.3 g/dL (32.0-36.0); MCV 91.4 fL (80-100); MPV 8.0 fL (7.6-11.3); Nucleated RBC Absolute Count 0.0 (0-0); Nucleated Red Blood Cells % 0.0 % (0-0); RBC Red Blood Cell Count 4.90 M/uL (3.86-4.86); White Blood Count 8.20 thou/uL (4.3-10.9)
[2024-12-10] MEDS ORDERED: MECLIZINE HCL 12.5 MG TAB ONE (18:31)
[2024-12-10 18:33] LABS: PT Prothrombin Time 10.8 SECONDS (10-13.0); Protime INR 0.95
[2024-12-10 18:36] LABS: Sqamous Epithelial <5 /HPF (None Seen); Urine Culture Reflex Order NOT NEEDED; Urine Microscopic Reflex YN ORDER UMIC
[2024-12-10 18:49] LABS: ALT/SGPT 44 U/L (13-56); AST/SGOT 33 U/L (15-37); Albumin 3.9 g/dL (3.4-5.0); Albumin/Globulin Ratio 1.0 (1.1-1.8); Alkaline Phosphatase 88 U/L (45-117); Anion Gap 9.2 mEq/L (5.0-15.0); BUN Blood Urea Nitrogen 24 mg/dL (7-18); Globulin 4.0 g/dL (2.3-3.5); Glucose Level 136 mg/dL (74-106); Magnesium 2.5 mg/dL (1.6-2.4); Potassium 4.2 mEq/L (3.5-5.1); Troponin High Sensitivity 10.4 pg/mL (<58.9)
[2024-12-10 18:50] LABS: Bilirubin Indirect, Calculated 0.2 mg/dL (0.2-0.8)
[2024-12-10] MEDS ORDERED: ACETAMINOPHEN 500 MG TAB ONE (19:11)
[2024-12-10] MEDS ORDERED: NA CHLORIDE 0.9% 500 ML ONE (19:35)
--- NOTE | 2024-12-10 21:05 | RAD REPORT ---
EXAMINATION: Neck Angio CLINICAL INDICATION: Female, 84 years old. dizziness TECHNIQUE: Axial CT images were obtained from the aortic arch to the skull base after intravenous con trast utilizing angiographic protocol with 3D post-processing (maximum intensity projection images, volume rendered images and/or shaded surface rendered images). One or more of the following dose redu ction techniques were used: Automated exposure control, adjustment of the mA and/or kV according to patient size, and/or iterative reconstruction. Unless otherwise specified, incidental findings do not require dedicated imaging follow-up. [id number]. NASCET criteria used. Mild 0-49% stenosis Moderate 50-69% stenosis Severe 70-99% stenosis COMPARISON: No prior exam. FINDINGS: AORTA: Normal RIGHT: - CCA: No flow limiting stenosis (>= 50%). No dissection. - ICA: Atherosclerotic changes but no flow limiting stenosis. - ECA: No flow limiting stenosis (>= 50%). No dissection. LEFT: - CCA: No flow limiting stenosis (>= 50%). No dissection. - ICA: Atherosclerotic changes but no flow limiting stenosis. - ECA: No flow limiting stenosis (>= 50%). No dissection. VERTEBRAL: Right dominant. Both are patent. SOFT TISSUE: No significant neck soft tissue abnormalities. The visualized lung apices are clear. 3D images confirm these findings. IMPRESSION: No arterial dissection or stenosis identified within the neck.
--- NOTE | 2024-12-10 21:06 | RAD REPORT ---
EXAMINATION: Head angio CLINICAL INDICATION: Female, 84 years old. DIZZINESS TECHNIQUE: Axial CT images were obtained through the head after intravenous contrast utilizing angiog raphic protocol with 3D post-processing (maximum intensity projection images, volume rendered images and/or shaded surface rendered images). One or more of the following dose reduction technique s were used: Automated exposure control, adjustment of the mA and/or kV according to patient size, and/or iterative reconstruction. Unless otherwise specified, incidental findings do not require dedic ated imaging follow-up. COMPARISON: No prior exam. FINDINGS: RIGHT: ICA: Atherosclerotic calcifications but no flow limiting stenosis. GIFTY: No aneurysm, stenosis, or dissection. MCA: No aneurysm, stenosis, or dissection. COMPUTER SYSTEMS SOFTWARE ENGINEER: No aneurysm, stenosis, or dissection. -type COMPUTER SYSTEMS SOFTWARE ENGINEER. LEFT: ICA: Atherosclerotic calcifications but no flow limiting stenosis. GIFTY: No aneurysm, stenosis, or dissection. MCA: No aneurysm, stenosis, or dissection. COMPUTER SYSTEMS SOFTWARE ENGINEER: No aneurysm, stenosis, or dissection. -type COMPUTER SYSTEMS SOFTWARE ENGINEER. Vertebrobasilar: The left vertebral artery terminates in a branch of the PICA. Patent dominant right vertebral artery. The basilar artery is patent. 3D images confirm these findings. IMPRESSION: No occlusion, aneurysm, or hemodynamically significant stenosis identified.
--- NOTE | 2024-12-10 21:27 | EDPHYS ---
Physician Documentation [facility] Name: Amy Wood Age: 84 yrs Sex: Female : 1940 Arrival Date: 12/10/2024 Time: 15:46 Bed 18 Private MD: ED Physician Gonzales Burrell HPI: 12/10 16:05 This 84 yrs old Female presents to ER via EMS with complaints of High Blood cp Pressure. 16:05 Patient is a 84-year-old female with past medical history significant for hypertension cp and hyperlipidemia who presents to the emergency department with reported dizziness and being lightheaded. Patient reports she was out shopping when she started be feeling dizzy and so she had her blood pressure checked and noticed that it was elevated. She called EMS to come to the emergency department for evaluation patient denies any syncope, and/or near syncope, denies any chest pain and reports feeling otherwise well. Historical: - Allergies: 16:01 Bactrim; me1 16:01 Ciprofloxacin; me1 16:01 Codeine; me1 16:01 Doxycycline; me1 16:01 Sulfa (Sulfonamide Antibiotics); me1 - PMHx: 16:01 High Cholesterol; Hypertension; me1 - PSHx: 16:01 Operative procedure on knee; me1 - Immunization history:: Adult Immunizations up to date. - Infectious Disease History:: Denies. - Social history:: Smoking status: Patient denies any tobacco usage or history of. ROS: 16:10 Constitutional: Negative for body aches, chills, fever, poor PO intake, cp 16:10 Cardiovascular: Negative for chest pain, edema, palpitations, cp 16:10 Respiratory: Negative for cough, shortness of breath, wheezing, 16:10 Neuro: Positive for dizziness, headache, Exam: 16:15 Constitutional: The patient appears in no acute distress, alert, awake, cp non-diaphoretic, non-toxic, well developed, well nourished, overweight 16:15 Head/Face: Normocephalic, atraumatic. cp 16:15 Eyes: Periorbital structures: appear normal, Conjunctiva: normal, no exudate, no injection, Sclera: no appreciated abnormality, Lids and lashes: appear normal, bilaterally, 16:15 ENT: External ear(s): are unremarkable, Nose: is normal, Mouth: Lips: moist, Oral mucosa: moist, Posterior pharynx: Airway: no evidence of obstruction, patent, 16:15 Neck: ROM/movement: is normal, is supple, without pain, no range of motions limitations, 16:15 Chest/axilla: Inspection: normal, 16:15 Cardiovascular: Rate: normal, Rhythm: regular, Edema: is not appreciated, JVD: is not appreciated, 16:15 Respiratory: the patient does not display signs of respiratory distress, Respirations: normal, no use of accessory muscles, no retractions, labored breathing, is not present, Breath sounds: are clear throughout, no decreased breath sounds, no stridor, no wheezing, 16:15 Abdomen/GI: Inspection: abdomen appears normal, Palpation: abdomen is soft and non-tender, in all quadrants, 16:15 Back: pain, is absent, ROM is normal, 16:15 Neuro: Orientation: to person, place \T\ time. Mentation: is normal, Cerebellar function: is grossly normal, Motor: moves all fours, strength is normal, Sensation: is normal, 18:10 ECG was reviewed by the Attending Physician. cp Vital Signs: 15:55 BP 149 / 57; Pulse 66; Resp 16; Temp 98.2; Pulse Ox 96% ; Weight 81.65 kg; Height 5 ft. me1 2 in. ; Pain 0/10; 18:17 BP 152 / 39; Pulse 62; Resp 17; Temp 97.8; Pulse Ox 100% ; ts3 18:30 BP 148 / 50; Pulse 60; Resp 17; Pulse Ox 98% on R/A; ar8 19:08 BP 156 / 74; Pulse 71; Resp 17; Pulse Ox 99% on R/A; Weight 72.57 kg; Height 5 ft. 0 tb4 in. ; Pain 0/10; 20:10 BP 166 / 75; Pulse 72; Resp 20; Pulse Ox 98% on R/A; Pain 0/10; tb4 21:40 BP 168 / 77 Sitting; Pulse 79; Resp 18; Pulse Ox 99% on R/A; Pain 0/10; tb4 21:46 BP 158 / 73 Standing; Pulse 69; Resp 20; Pain 0/10; tb4 21:49 BP 160 / 73 Supine; Pulse 70; Resp 19; Pulse Ox 99% on R/A; tb4 19:08 Body Mass Index 31.25 (72.57 kg, 152.4 cm) tb4 15:55 Pain Scale: Adult me1 19:08 Pain Scale: Adult tb4 20:10 Pain Scale: Adult tb4 21:40 Pain Scale: Adult tb4 21:46 Pain Scale: Adult tb4 MDM: 16:10 Medical Screening Exam initiated soledad 21:25 Data reviewed: vital signs, nurses notes, lab test result(s), EKG, radiologic studies, cp CT scan, plain films, and as a result, I will discharge patient. 21:25 Differential diagnosis: hypertensive crisis, Malignant HTN, CVA, intracerebral cp hemorrhage. I considered the following discharge prescriptions or medication management in the emergency department Medications were administered in the Emergency Department. See MAR. Independent interpretation of the following test(s) in the Emergency Department EKG: See my EKG interpretation above. Care significantly affected by the following chronic conditions: Hypertension, Obesity. Response to treatment: the patient's symptoms have mildly improved after treatment, and as a result, I will discharge patient. 12/10 16:02 Order name: Basic Metabolic Panel; Complete Time: 18:57 cp 12/10 18:58 Interpretation: Normal except: NA 133; GLUC 136; BUN 24; CRE 1.03; GFR 54. 12/10 16:02 Order name: CBC with Diff; Complete Time: 18:57 cp 12/10 18:58 Interpretation: Normal except: RBC 4.90; HGB 15.4. 12/10 16:02 Order name: LFT's; Complete Time: 18:57 12/10 16:02 Order name: Magnesium; Complete Time: 18:57 cp 12/10 16:02 Order name: PT-INR; Complete Time: 18:57 cp 12/10 16:02 Order name: Troponin HS; Complete Time: 18:57 cp 12/10 16:02 Order name: UA Rfx Aristeo Cult if indicated; Complete Time: 18:57 cp 12/10 16:02 Order name: XRAY Chest (1 view); Complete Time: 17:40 cp 12/10 18:11 Interpretation: Report review. 12/10 16:02 Order name: CT Head Brain wo Cont; Complete Time: 17:40 12/10 18:12 Interpretation: Report reviewed. 12/10 18:59 Order name: CT Head Angio; Complete Time: 21:17 cp 12/10 18:59 Order name: CT Neck Angio; Complete Time: 21:17 cp 12/10 16:02 Order name: Cardiac monitoring; Complete Time: 18:16 cp 12/10 16:02 Order name: EKG - Nurse/Tech; Complete Time: 18:16 cp 12/10 16:02 Order name: IV Saline Lock; Complete Time: 18:16 cp 12/10 16:02 Order name: Labs collected and sent; Complete Time: 18:16 cp 12/10 16:02 Order name: O2 Per Protocol; Complete Time: 18:16 cp 12/10 16:02 Order name: O2 Sat Monitoring; Complete Time: 18:16 cp 12/10 16:02 Order name: Orthostatics; Complete Time: 21:49 cp 12/10 21:01 Order name: Misc. Order: ambulate patient; Complete Time: 21:53 cp EC:10 Rate is 60 beats/min. Rhythm is regular. VT interval is normal. QRS interval is cp prolonged at 124 msec. QT interval is normal. T waves are Inverted in lead aVR. Interpreted by me. Reviewed by me. Administered Medications: 18:42 Drug: Meclizine PO 25 mg PO once Route: PO; ar8 20:00 Follow up: Response: No adverse reaction tb4 19:29 Drug: Acetaminophen PO 1000 mg PO once Route: PO; tb4 20:35 Follow up: Response: No adverse reaction; Pain is decreased tb4 19:39 Drug: NS 0.9% IV 500 ml 500 ml IV at 1 bolus once; to be given as a bolus over 60 tb4 minutes Volume: 500 ml; Route: IV; Rate: 1 bolus; Site: right antecubital; 21:49 Follow up: Response: No adverse reaction; IV Status: Completed infusion tb4 Disposition: 12/11 09:14 Co-signature as Attending Physician, Gonzales Burrell MD I agree with the assessment and soledad plan of care. 21:52 Chart complete. cp Disposition Summary: 12/10/24 21:26 Discharge Ordered Notes: Location: Home cp Problem: an acute exacerbation cp Symptoms: have improved cp Condition: Stable cp Diagnosis - Hypertensive heart disease without heart failure cp - Dizziness and giddiness cp Followup: cp - With: Private Physician - When: 2 - 3 days - Reason: Recheck today's complaints Discharge Instructions: - Discharge Summary Sheet cp - Dizziness cp - Hypertension, Adult cp - Aspirin and Your Heart cp - Form - Blood Pressure Record Sheet cp - How to Take Your Blood Pressure cp Forms: - Medication Reconciliation Form cp - Antibiotic Education cp - Prescription Opioid Use cp - Patient Portal Instructions cp - Leadership Thank You Letter cp Prescriptions: - Meclizine 25 mg Oral Tablet - take 1 tablet ORAL route every 8 hours As needed; 30 tablet; Refills: 0, cp Product Selection Permitted - Zofran 4 mg Oral Tablet - take 1 tablet ORAL route every 12 hours As needed; 20 tablet; Refills: 0, cp Product Selection Permitted Signatures: Dispatcher [employer] EDMS Gonzales Burrell MD MD cha Page, Corey, KATELYN PASymone Mckenzie cp, RN RN me1 Kelley Hansen RN RN tb4 Librado Espinoza, RN RN ar8 Corrections: (The following items were deleted from the chart) 12/10 16:02 16:02 BASIC METABOLIC PANEL+C.LAB.BRZ ordered. EDMS EDMS 16:02 16:02 CBC+H.LAB.BRZ ordered. EDMS EDMS 16:02 16:02 HEPATIC FUNCTION+C.LAB.BRZ ordered. EDMS EDMS 16:03 16:02 MAGNESIUM+C.LAB.BRZ ordered. EDMS EDMS 16:03 16:02 PROTIME (+INR)+COAG.LAB.BRZ ordered. EDMS EDMS 16:03 16:02 Troponin High Sensitivity+C.LAB.BRZ ordered. EDMS EDMS 16:03 16:02 UA Rfx Aristeo Cult if indicated+U.LAB.BRZ ordered. EDMS EDMS 16:03 16:03 Chest Single View+RAD.RAD.BRZ ordered. EDMS EDMS 16:03 16:03 Head Brain Wo Cont+CT.RAD.BRZ ordered. EDMS EDMS
--- NOTE | 2024-12-10 21:27 | ER ---
Nurse's Notes [facility] Name: Amy Wood Age: 84 yrs Sex: Female : 1940 Arrival Date: 12/10/2024 Time: 15:46 Bed 18 Private MD: Diagnosis: Hypertensive heart disease without heart failure;Dizziness and giddiness Presentation: 12/10 15:55 Chief complaint: EMS states: toned out for elevated bp and LOPEZ. Was shopping and didn't me1 feel good so she went home and checked her BP and it was elevated. BP 181/71, HR 66. C/o headache to left muslim. Coronavirus screen: At this time, the client does not indicate any symptoms associated with coronavirus-19. Ebola Screen: No symptoms or risks identified at this time. Initial Sepsis Screen: Does the patient meet any 2 criteria? No. Patient's initial sepsis screen is negative. Does the patient have a suspected source of infection? No. Patient's initial sepsis screen is negative. Risk Assessment: Do you want to hurt yourself or someone else? Patient reports no desire to harm self or others. Onset of symptoms was December 10, 2024 at 13:30. 15:55 Method Of Arrival: EMS: [facility] me1 15:55 Acuity: GRIS 3 me1 Historical: - Allergies: 16:01 Bactrim; me1 16:01 Ciprofloxacin; me1 16:01 Codeine; me1 16:01 Doxycycline; me1 16:01 Sulfa (Sulfonamide Antibiotics); me1 - PMHx: 16:01 High Cholesterol; Hypertension; me1 - PSHx: 16:01 Operative procedure on knee; me1 - Immunization history:: Adult Immunizations up to date. - Infectious Disease History:: Denies. - Social history:: Smoking status: Patient denies any tobacco usage or history of. Screenin:42 [facility] ED Fall Risk Assessment (Adult) History of falling in the last 3 months, ar8 including since admission No falls in past 3 months (0 pts) Confusion or Disorientation No (0 pts) Intoxicated or Sedated No (0 pts) Impaired Gait No (0 pts) Mobility Assist Device Used No (0 pt) Altered Elimination No (0 pt) Score/Fall Risk Level 0 - 2 = Low Risk. Abuse screen: Denies threats or abuse. Nutritional screening: No deficits noted. Tuberculosis screening: No symptoms or risk factors identified. 19:56 [facility] ED Fall Risk Assessment (Adult) History of falling in the last 3 months, tb4 including since admission No falls in past 3 months (0 pts) Confusion or Disorientation No (0 pts) Intoxicated or Sedated No (0 pts) Impaired Gait No (0 pts) Mobility Assist Device Used No (0 pt) Altered Elimination No (0 pt) Score/Fall Risk Level 0 - 2 = Low Risk Oriented to surroundings, Maintained a safe environment. 19:56 Abuse screen: Denies threats or abuse. Denies injuries from another. Nutritional tb4 screening: No deficits noted. Tuberculosis screening: No symptoms or risk factors identified. Assessment: 18:41 General: Appears in no apparent distress. Behavior is calm, cooperative. Pain: Denies ar8 pain. Neuro: Level of Consciousness is awake, alert, obeys commands, Oriented to person, place, time, situation. Cardiovascular: No deficits noted. Respiratory: Airway is patent Respiratory effort is even, unlabored, Respiratory pattern is regular, symmetrical. GI: No deficits noted. : No deficits noted. 19:56 General: Appears in no apparent distress. Behavior is cooperative. Pain: Denies pain. tb4 Neuro: No deficits noted. Level of Consciousness is awake, alert, obeys commands, Oriented to person, place, time, situation, Swaging Machine Adjuster are equal bilaterally Moves all extremities. Full function Gait is steady, Speech is normal, Facial symmetry appears normal. Cardiovascular: Denies chest pain, fatigue, shortness of breath. Respiratory: Airway is patent Trachea midline Respiratory effort is even, unlabored, Respiratory pattern is regular, symmetrical. GI: No signs and/or symptoms were reported involving the gastrointestinal system. : No signs and/or symptoms were reported regarding the genitourinary system. EENT: No signs and/or symptoms were reported regarding the EENT system. Derm: No signs and/or symptoms reported regarding the dermatologic system. Derm: Skin is intact, is healthy with good turgor, Skin is dry, Skin is normal, Skin temperature is warm. Musculoskeletal: Circulation, motion, and sensation intact. Range of motion: intact in all extremities. 20:19 Reassessment: Patient walked to restroom. tb4 21:02 Reassessment: Patient denies pain at this time. Patient states feeling better. tb4 Reassessment: family members with patient. General: Appears in no apparent distress. Behavior is calm, cooperative. Pain: Denies pain. Respiratory: Airway is patent Respiratory effort is even, unlabored, Respiratory pattern is regular, symmetrical. Vital Signs: 15:55 BP 149 / 57; Pulse 66; Resp 16; Temp 98.2; Pulse Ox 96% ; Weight 81.65 kg; Height 5 ft. me1 2 in. ; Pain 0/10; 18:17 BP 152 / 39; Pulse 62; Resp 17; Temp 97.8; Pulse Ox 100% ; ts3 18:30 BP 148 / 50; Pulse 60; Resp 17; Pulse Ox 98% on R/A; ar8 19:08 BP 156 / 74; Pulse 71; Resp 17; Pulse Ox 99% on R/A; Weight 72.57 kg; Height 5 ft. 0 tb4 in. ; Pain 0/10; 20:10 BP 166 / 75; Pulse 72; Resp 20; Pulse Ox 98% on R/A; Pain 0/10; tb4 21:40 BP 168 / 77 Sitting; Pulse 79; Resp 18; Pulse Ox 99% on R/A; Pain 0/10; tb4 21:46 BP 158 / 73 Standing; Pulse 69; Resp 20; Pain 0/10; tb4 21:49 BP 160 / 73 Supine; Pulse 70; Resp 19; Pulse Ox 99% on R/A; tb4 19:08 Body Mass Index 31.25 (72.57 kg, 152.4 cm) tb4 15:55 Pain Scale: Adult me1 19:08 Pain Scale: Adult tb4 20:10 Pain Scale: Adult tb4 21:40 Pain Scale: Adult tb4 21:46 Pain Scale: Adult tb4 ED Course: 15:47 Patient arrived in ED. im 15:54 Gonzales Lemon [facility]-C is [facility]. cp 15:54 Gonzales Burrell MD is Attending Physician. cp 16:01 Triage completed. me1 16:01 Arm band placed on Patient placed in waiting room. me1 16:42 CT Head Brain wo Cont In Process Unspecified. EDMS 17:06 XRAY Chest (1 view) In Process Unspecified. EDMS 18:16 Initial lab(s) drawn, by chemistry lab instructor, sent to lab. Inserted saline lock: 22 gauge in right ts3 antecubital area, using aseptic technique. Blood collected. Flushed with 10 mL NS. 18:17 EKG done, by centura technical lead senior developer. ts3 18:17 Urine collected: clean catch specimen, sent to lab. ts3 18:22 Librado Espinoza, RN is Primary Nurse. ar8 18:42 Bed in low position. Call light in reach. Side rails up X2. Provided Education on: plan ar8 of care. 18:42 No provider procedures requiring assistance completed. ar8 19:56 Client placed on continuous cardiac and pulse oximetry monitoring. NIBP monitoring tb4 applied. gambling monitor on. Pulse ox on. Door closed. Warm blanket given. 20:01 CT Scan. tb4 20:52 CT Head Angio In Process Unspecified. EDMS 20:52 CT Neck Angio In Process Unspecified. EDMS 21:52 IV discontinued, intact, bleeding controlled, No redness/swelling at site. Pressure tb4 dressing applied. Administered Medications: 18:42 Drug: Meclizine PO 25 mg PO once Route: PO; ar8 20:00 Follow up: Response: No adverse reaction tb4 19:29 Drug: Acetaminophen PO 1000 mg PO once Route: PO; tb4 20:35 Follow up: Response: No adverse reaction; Pain is decreased tb4 19:39 Drug: NS 0.9% IV 500 ml 500 ml IV at 1 bolus once; to be given as a bolus over 60 tb4 minutes Volume: 500 ml; Route: IV; Rate: 1 bolus; Site: right antecubital; 21:49 Follow up: Response: No adverse reaction; IV Status: Completed infusion tb4 Medication: 18:42 VIS not applicable for this client. ar8 Outcome: 21:26 Discharge ordered by MD. crook 21:52 Discharged to home ambulatory, with family, with friend, tb4 21:52 Condition: stable 21:52 Discharge instructions given to patient, family, friend, Instructed on discharge instructions, follow up and referral plans. no drinking with medication, Demonstrated understanding of instructions, follow-up care, medications, Prescriptions given X 2, 21:53 Patient left the ED. tb4 Signatures: Dispatcher [employer] EDOK Gonzales Lemon PA-C PAZenia Almazan cp, Michelle, RN RN me1 Kelley Hansen RN RN tb4 Areli Alvarez ts3 Librado Espinoza RN RN ar8 Corrections: (The following items were deleted from the chart) 20:00 19:08 BP 156 / 74; Pulse 71bpm; Resp 17bpm; Pulse Ox 99% RA; 63.5 kg; Height 5 ft. 0 tb4 in.; BMI: 27.3; Pain 0/10, Adult; tb4 21:52 21:46 BP 158 / 73; Pulse 69bpm; Resp 20bpm; Pain 0/10, Adult; tb4 tb4
[2024-12-10 23:05] VITALS: BP 160/73; O2SAT 99
== END 2024-12-10 21:53 | disposition home or self-care (01) ==
LOC: ER 15:46
DX: I11.9 Hypertensive heart disease without heart failure (principal); R42 Dizziness and giddiness; I10 Essential (primary) hypertension; E78.00 Pure hypercholesterolemia, unspecified; Z88.1 Allergy status to other antibiotic agents; Z88.2 Allergy status to sulfonamides; Z88.5 Allergy status to narcotic agent
CPT/HCPCS: 96361; 93005; 85025; 81001; 80048; 36415; 83735; 85610; 80076; 84484; 70450; 70496; 70498; 71045; 96360; 99285; Q9967; J8597; J7040

== ENCOUNTER 2025-01-24 12:21 | Emergency (ER) | payer OTHER ==
[2025-01-24 13:32] LABS: Influenza A Ag Negative; Influenza B Ag Negative; SARS-CoV-2 Antigen Rapid Res Negative (Negative)
[2025-01-24 13:44] LABS: Absolute Lymphocytes (CBC) 2.0 K/uL (0.7-4.9); Hematocrit 46.7 % (36.0-45.0); Hemoglobin 15.6 g/dL (12.0-15.0); MCH 31.0 pg (27.0-35.0); MCHC 33.4 g/dL (32.0-36.0); MCV 92.8 fL (80-100); MPV 8.3 fL (7.6-11.3); Nucleated RBC Absolute Count 0.0 (0-0); Nucleated Red Blood Cells % 0.0 % (0-0); RBC Red Blood Cell Count 5.03 M/uL (3.86-4.86); White Blood Count 6.00 thou/uL (4.3-10.9)
[2025-01-24] MEDS ORDERED: HYDRALAZINE HCL 20 MG/ML VIAL ONE (13:46)
[2025-01-24] MEDS ORDERED: LORazepam 2 MG/ML VIAL ONE (13:46)
[2025-01-24 13:52] LABS: PT Prothrombin Time 11.5 SECONDS (10-13.0); Protime INR 1.02
[2025-01-24 14:13] LABS: ALT/SGPT 32 U/L (13-56); AST/SGOT 25 U/L (15-37); Albumin 3.6 g/dL (3.4-5.0); Albumin/Globulin Ratio 1.0 (1.1-1.8); Alkaline Phosphatase 56 U/L (45-117); Anion Gap 7.2 mEq/L (5.0-15.0); BUN Blood Urea Nitrogen 18 mg/dL (7-18); Bilirubin Indirect, Calculated 0.2 mg/dL (0.2-0.8); Globulin 3.6 g/dL (2.3-3.5); Glucose Level 100 mg/dL (74-106); Magnesium 2.6 mg/dL (1.6-2.4); NT PRO-BNP 759 pg/mL (<450); Potassium 4.2 mEq/L (3.5-5.1); Troponin High Sensitivity 7.8 pg/mL (<58.9)
--- NOTE | 2025-01-24 14:19 | RAD REPORT ---
EXAM: Chest Single View HISTORY: 84 years Female CHEST PAIN COMPARISON: 12/10/2024 FINDINGS: LUNGS/PLEURA: The lungs are clear. No pleural effusions or pneumothorax. No pulmonary edema. CARDIAC/MEDIASTINUM: The cardiac silhouette is within normal limits. UPPER ABDOMEN: No significant abnormality. BONES: No acute abnormality. LINES/TUBES/OTHER: N/A IMPRESSION: No evidence of acute cardiopulmonary disease.
--- NOTE | 2025-01-24 15:30 | EDPHYS ---
Physician Documentation [facility] Name: Amy Wood Age: 84 yrs Sex: Female : 1940 Arrival Date: 01/24/2025 Time: 12:21 Bed 15 Private MD: ED Physician Gonzales Burrell HPI: 01/24 13:11 This 84 yrs old Female presents to ER via Wheelchair with complaints of High sb4 Blood Pressure. 13:11 Patient states that she was not feeling well this morning -more tired than usual and sb4 headache. She checked her blood pressure and it was elevated - 160/100 so came to the ED for further eval. Denies any dizziness, chest pain, shortness of breath. 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 Historical: - Allergies: 12:47 Bactrim; iw 12:47 Ciprofloxacin; iw 12:47 Codeine; iw 12:47 Doxycycline; iw 12:47 Sulfa (Sulfonamide Antibiotics); iw - PMHx: 12:47 Hypertension; High Cholesterol; iw - PSHx: 12:47 Operative procedure on knee; iw - Immunization history:: Adult Immunizations unknown. - Infectious Disease History:: Denies. - Social history:: Smoking status: Patient denies any tobacco usage or history of. ROS: 13:11 Cardiovascular: Negative for chest pain, palpitations, and edema, sb4 13:11 Constitutional: Positive for fatigue, 13:11 Neuro: Positive for headache, 13:11 All other systems are negative, Exam: 13:11 Constitutional: This is a well developed, well nourished patient who is awake, alert, sb4 and in no acute distress. Head/Face: Normocephalic, atraumatic. Eyes: Extra-ocular motions intact. Periorbital areas with no swelling, redness, or edema. ENT: Mucous membranes moist. Cardiovascular: Regular rate and rhythm with a normal S1 and S2. Respiratory: No increased work of breathing, no retractions or nasal flaring. Abdomen/GI: Soft, non-tender, no distension. Skin: Warm, dry with normal turgor. Normal color with no rashes, no lesions, and no evidence of cellulitis. Vital Signs: 12:45 BP 161 / 73; Pulse 60; Resp 16; Temp 98.2; Pulse Ox 95% on R/A; Weight 72.57 kg; Height iw 5 ft. 0 in. ; 13:15 BP 198 / 73; Pulse 57; Resp 18; Pulse Ox 96% ; db 14:00 BP 188 / 63; Pulse 58; Resp 16; Pulse Ox 98% on R/A; db 15:15 BP 133 / 55; Pulse 62; Resp 18; Temp 98(O); Pulse Ox 98% ; kj2 12:45 Body Mass Index 31.25 (72.57 kg, 152.4 cm) iw MDM: 12:33 Medical Screening Exam initiated sb4 15:33 Data interpreted: washateria attendant: rate is 58 beats/min, rhythm is normal sinus rhythm. sb4 Data reviewed: vital signs, nurses notes, lab test result(s), EKG, radiologic studies, and as a result, I will discharge patient. Care significantly affected by the following chronic conditions: Hypertension, Obesity. Counseling: I had a detailed discussion with the patient and/or guardian regarding the historical points, exam findings, and any diagnostic results supporting the discharge/admit diagnosis, the presence of at least one elevated blood pressure reading (>120/80) during this emergency department visit, lab results, radiology results, the need for outpatient follow up, for definitive care, to return to the emergency department if symptoms worsen or persist or if there are any questions or concerns that arise at home. Special discussion: I discussed with the patient/guardian in detail that at this point there is no indication for admission to the hospital. It is understood, however, that if the symptoms persist or worsen the patient needs to return immediately for re-evaluation. 01/24 12:47 Order name: Basic Metabolic Panel; Complete Time: 14:14 sb4 01/24 12:47 Order name: CBC with Diff; Complete Time: 13:46 sb4 01/24 12:47 Order name: LFT's; Complete Time: 14:14 sb4 01/24 12:47 Order name: Magnesium; Complete Time: 14:14 sb4 01/24 12:47 Order name: NT PRO-BNP; Complete Time: 14:14 sb4 01/24 12:47 Order name: PT-INR; Complete Time: 13:55 sb4 01/24 12:47 Order name: Troponin HS; Complete Time: 14:14 sb4 01/24 12:57 Order name: COVID-19 Ag + Flu A+B Ag; Complete Time: 13:33 sb4 01/24 12:47 Order name: XRAY Chest (1 view); Complete Time: 14:20 sb4 01/24 12:47 Order name: Cardiac monitoring; Complete Time: 14:02 sb4 01/24 12:47 Order name: EKG - Nurse/Tech; Complete Time: 13:22 sb4 01/24 12:47 Order name: IV Saline Lock; Complete Time: 14:02 sb4 01/24 12:47 Order name: Labs collected and sent; Complete Time: 13:40 sb4 01/24 12:47 Order name: O2 Per Protocol; Complete Time: 13:40 sb4 01/24 12:47 Order name: O2 Sat Monitoring; Complete Time: 13:40 sb4 EC:22 Rate is 63 beats/min. Rhythm is regular, Normal Sinus Rhythm. MA interval is normal at sb4 154 msec. QRS interval is normal at 120 msec. QT interval is prolonged at 446 msec. No Q waves. T waves are Normal. No ST changes noted. Clinical impression: No evidence of ischemia. Interpreted by me. Reviewed by me. Administered Medications: 13:50 Drug: hydrALAZINE IVP 10 mg IVP once Route: IVP; Site: right forearm; db 15:47 Follow up: Response: No adverse reaction kj2 13:50 Drug: Ativan IVP 0.5 mg IVP once Route: IVP; Site: right forearm; db 15:47 Follow up: Response: No adverse reaction kj2 Disposition Summary: 01/24/25 15:30 Discharge Ordered Notes: Location: Home sb4 Problem: new sb4 Symptoms: have improved sb4 Condition: Stable sb4 Diagnosis - Essential (primary) hypertension sb4 Followup: sb4 - With: Private Physician - When: 1 week - Reason: Recheck today's complaints, Re-evaluation by your physician Discharge Instructions: - Discharge Summary Sheet sb4 - Hypertension, Adult sb4 - How to Take Your Blood Pressure, [id number] sb4 - Managing Your Hypertension sb4 Forms: - Patient Portal Instructions sb4 - Leadership Thank You Letter sb4 Prescriptions: - amlodipine 5 mg Oral tablet - take 1 tablet ORAL route daily; 20 tablet; Refills: 0, Product Selection sb4 Permitted Addendum: 02/03/2025 08:02 Co-signature as Attending Physician, Gonzales Burrell MD I agree with the assessment and c montaño plan of care. Signatures: Dispatcher [employer] EDGonzales Antoine MD MD cha Williams, Irene, RN RN Idalmis Ordaz, RN RN Lilibeth Easton, PA-C PA-C sb4 Radha Wagner RN kj2 Corrections: (The following items were deleted from the chart) 01/24 12:48 12:47 BASIC METABOLIC PANEL+C.LAB.BRZ ordered. EDMS EDMS 12:48 12:47 CBC+H.LAB.BRZ ordered. EDMS EDMS 12:48 12:48 HEPATIC FUNCTION+C.LAB.BRZ ordered. EDMS EDMS 12:48 12:48 MAGNESIUM+C.LAB.BRZ ordered. EDMS EDMS 12:48 12:48 PROBNP+C.LAB.BRZ ordered. EDMS EDMS 12:48 12:48 PROTIME (+INR)+COAG.LAB.BRZ ordered. EDMS EDMS 12:48 12:48 Troponin High Sensitivity+C.LAB.BRZ ordered. EDMS EDMS 12:48 12:48 Chest Single View+RAD.RAD.BRZ ordered. EDMS EDMS
--- NOTE | 2025-01-24 15:30 | ER ---
Nurse's Notes [facility] Name: Amy Wood Age: 84 yrs Sex: Female : 1940 Arrival Date: 01/24/2025 Time: 12:21 Bed 15 Private MD: Diagnosis: Essential (primary) hypertension Presentation: 01/24 12:45 Chief complaint: Patient states: had high BP this morning, 186/91 , has not been iw feeling well, has mild headache , takes BP bisoprolol 10 mg, Entresto 49-51. Coronavirus screen: At this time, the client does not indicate any symptoms associated with coronavirus-19. Ebola Screen: No symptoms or risks identified at this time. Initial Sepsis Screen: Does the patient meet any 2 criteria? No. Patient's initial sepsis screen is negative. Does the patient have a suspected source of infection? No. Patient's initial sepsis screen is negative. Risk Assessment: Do you want to hurt yourself or someone else? Patient reports no desire to harm self or others. 12:45 Method Of Arrival: Wheelchair iw 12:45 Acuity: GRIS 3 iw 12:46 Onset of symptoms was January 24, 2025. iw Historical: - Allergies: 12:47 Bactrim; iw 12:47 Ciprofloxacin; iw 12:47 Codeine; iw 12:47 Doxycycline; iw 12:47 Sulfa (Sulfonamide Antibiotics); iw - PMHx: 12:47 Hypertension; High Cholesterol; iw - PSHx: 12:47 Operative procedure on knee; iw - Immunization history:: Adult Immunizations unknown. - Infectious Disease History:: Denies. - Social history:: Smoking status: Patient denies any tobacco usage or history of. Screenin:20 [facility] ED Fall Risk Assessment (Adult) History of falling in the last 3 months, db including since admission No falls in past 3 months (0 pts) Confusion or Disorientation No (0 pts) Intoxicated or Sedated No (0 pts) Impaired Gait No (0 pts) Mobility Assist Device Used No (0 pt) Altered Elimination No (0 pt) Score/Fall Risk Level 0 - 2 = Low Risk Oriented to surroundings, Maintained a safe environment. Abuse screen: Denies threats or abuse. Denies injuries from another. Nutritional screening: No deficits noted. Tuberculosis screening: No symptoms or risk factors identified. Assessment: 14:18 Reassessment: Patient appears in no apparent distress at this time. Patient and/or db family updated on plan of care and expected duration. Pain level reassessed. Patient is alert, oriented x 3, equal unlabored respirations, skin warm/dry/pink. General: Appears in no apparent distress. comfortable, Behavior is calm, cooperative. Pain: Denies pain. Neuro: Level of Consciousness is awake, alert, obeys commands, Oriented to person, place, time, situation. Respiratory: Airway is patent Respiratory effort is even, unlabored, Respiratory pattern is regular, symmetrical. 15:15 Reassessment: Patient appears in no apparent distress at this time. Patient and/or kj2 family updated on plan of care and expected duration. Pain level reassessed. Patient is alert, oriented x 3, equal unlabored respirations, skin warm/dry/pink. Vital Signs: 12:45 BP 161 / 73; Pulse 60; Resp 16; Temp 98.2; Pulse Ox 95% on R/A; Weight 72.57 kg; Height iw 5 ft. 0 in. ; 13:15 BP 198 / 73; Pulse 57; Resp 18; Pulse Ox 96% ; db 14:00 BP 188 / 63; Pulse 58; Resp 16; Pulse Ox 98% on R/A; db 15:15 BP 133 / 55; Pulse 62; Resp 18; Temp 98(O); Pulse Ox 98% ; kj2 12:45 Body Mass Index 31.25 (72.57 kg, 152.4 cm) iw ED Course: 12:30 Patient arrived in ED. cj3 12:32 Lilibeth Hansen PA-C is [facility]. sb4 12:32 Gonzales Burrell MD is Attending Physician. sb4 12:46 Triage completed. iw 13:12 COVID-19 Ag + Flu A+B Ag Sent. ts3 13:22 EKG done, by electrophysiology technician. reviewed by Lilibeth Hansen PA-C. ts3 13:41 Initial lab(s) drawn, by laborer prestressed concrete, sent to lab. ts3 13:50 Inserted saline lock: 22 gauge in right forearm, using aseptic technique. Blood db collected. Flushed with 10 mL NS. 14:00 Provided Education on: CALL LIGHT. kj2 14:00 Arm band placed on Patient placed in the treatment room. kj2 14:01 XRAY Chest (1 view) In Process Unspecified. EDMS 14:02 Idalmis Siu, RN is Primary Nurse. db 14:20 Patient has correct armband on for positive identification. Bed in low position. Call db light in reach. Side rails up X 1. Client placed on continuous cardiac and pulse oximetry monitoring. NIBP monitoring applied. couturiere on. Pulse ox on. NIBP on. Warm blanket given. Pillow given. 14:39 Radha Wagner, RN is Primary Nurse. kj2 15:46 No provider procedures requiring assistance completed. IV discontinued, intact, kj2 bleeding controlled, No redness/swelling at site. Pressure dressing applied. Administered Medications: 13:50 Drug: hydrALAZINE IVP 10 mg IVP once Route: IVP; Site: right forearm; db 15:47 Follow up: Response: No adverse reaction kj2 13:50 Drug: Ativan IVP 0.5 mg IVP once Route: IVP; Site: right forearm; db 15:47 Follow up: Response: No adverse reaction kj2 Medication: 14:53 VIS not applicable for this client. kj2 Outcome: 15:30 Discharge ordered by . sb4 15:47 Discharged to home ambulatory, with family, kj2 15:47 Condition: stable 15:47 Discharge instructions given to patient, Instructed on discharge instructions, follow up and referral plans. Demonstrated understanding of instructions, follow-up care, medications, Prescriptions given X 1, 16:01 Patient left the ED. kj2 Signatures: Dispatcher [employer] EDMN Renee Morelos RN RN iw Idalmis Siu, RN RN Lilibeth Easton PA-Bear PA-C sb4 Radha Wagner, MARIEL FLOYD kj2 Saira Tobin cj3 Areli Alvarez ts3 Corrections: (The following items were deleted from the chart) 12:47 12:45 BP 161 / 73; Pulse 60bpm; Resp 16bpm; Pulse Ox 95% RA; Temp 98.2F; iw stefano
[2025-01-24 16:15] VITALS: O2SAT 98
[2025-01-24 16:17] VITALS: BP 133/55; TEMP 98
== END 2025-01-24 16:01 | disposition home or self-care (01) ==
LOC: ER 12:21
DX: I10 Essential (primary) hypertension (principal); R53.83 Other fatigue; Z11.52 Encounter for screening for COVID-19
CPT/HCPCS: 93005; 85025; 80048; 36415; 83735; 85610; 80076; 84484; 83880; 71045; 96375; 96374; 99285; 87428; J0360

== ENCOUNTER 2025-02-01 13:21 | Emergency (ER) | payer OTHER ==
--- NOTE | 2025-02-01 15:10 | RAD REPORT ---
EXAMINATION: ONE VIEW CHEST XR CLINICAL INDICATION: CHEST PAIN TECHNIQUE: Frontal chest projection is submitted. Examination is limited by patient positioning and t echnique. COMPARISON: 01/24/2025 FINDINGS: The lungs are well inflated and clear. The heart is upper limit of normal in size. No displaced fract ures identified. Aortic atherosclerosis. IMPRESSION: No acute intrathoracic abnormalities.
[2025-02-01 16:15] LABS: Absolute Lymphocytes (CBC) 2.5 K/uL (0.7-4.9); Hematocrit 48.3 % (36.0-45.0); Hemoglobin 16.1 g/dL (12.0-15.0); MCH 31.1 pg (27.0-35.0); MCHC 33.3 g/dL (32.0-36.0); MCV 93.6 fL (80-100); MPV 8.2 fL (7.6-11.3); Nucleated RBC Absolute Count 0.0 (0-0); Nucleated Red Blood Cells % 0.0 % (0-0); RBC Red Blood Cell Count 5.16 M/uL (3.86-4.86); White Blood Count 8.00 thou/uL (4.3-10.9)
[2025-02-01 16:23] LABS: PT Prothrombin Time 10.8 SECONDS (10-13.0); Protime INR 0.95
[2025-02-01 17:13] LABS: ALT/SGPT 64 U/L (13-56); AST/SGOT 48 U/L (15-37); Albumin 3.5 g/dL (3.4-5.0); Albumin/Globulin Ratio 0.9 (1.1-1.8); Alkaline Phosphatase 71 U/L (45-117); Anion Gap 8.5 mEq/L (5.0-15.0); BUN Blood Urea Nitrogen 20 mg/dL (7-18); Globulin 3.9 g/dL (2.3-3.5); Glucose Level 121 mg/dL (74-106); Magnesium 2.4 mg/dL (1.6-2.4); NT PRO-BNP 525 pg/mL (<450); Potassium 4.5 mEq/L (3.5-5.1); Troponin High Sensitivity 9.0 pg/mL (<58.9)
[2025-02-01 17:14] LABS: Bilirubin Indirect, Calculated 0.1 mg/dL (0.2-0.8)
--- NOTE | 2025-02-01 17:24 | ER ---
Nurse's Notes [facility] Name: Amy Wood Age: 84 yrs Sex: Female : 1940 Arrival Date: 02/01/2025 Time: 13:21 Bed 19 Private MD: Diagnosis: Essential (primary) hypertension Presentation: 02/01 13:51 Chief complaint: Patient states: Had an episode of dizziness and bp was 199/100s. Took me1 her bp med and called EMS. EMS 134/50 hr 64, dizziness improving as well. Coronavirus screen: Vaccine status:. Ebola Screen: Patient reports being unvaccinated. No symptoms or risks identified at this time. Initial Sepsis Screen: Does the patient meet any 2 criteria? No. Patient's initial sepsis screen is negative. Does the patient have a suspected source of infection? No. Patient's initial sepsis screen is negative. Risk Assessment: Do you want to hurt yourself or someone else? Patient reports no desire to harm self or others. Onset of symptoms was February 01, 2025 at 11:20. 13:51 Method Of Arrival: Wheelchair me1 13:51 Acuity: GRIS 3 me1 Historical: - Allergies: 13:55 Bactrim; me1 13:55 Ciprofloxacin; me1 13:55 Codeine; me1 13:55 Doxycycline; me1 13:55 Sulfa (Sulfonamide Antibiotics); me1 - PMHx: 13:55 Hypertension; me1 - PSHx: 13:55 Operative procedure on knee; me1 - Immunization history:: Adult Immunizations up to date. - Infectious Disease History:: Denies. - Social history:: Smoking status: Patient denies any tobacco usage or history of. Screenin:50 [facility] ED Fall Risk Assessment (Adult) History of falling in the last 3 months, zm including since admission No falls in past 3 months (0 pts) Confusion or Disorientation No (0 pts) Intoxicated or Sedated No (0 pts) Impaired Gait No (0 pts) Mobility Assist Device Used No (0 pt) Altered Elimination No (0 pt) Score/Fall Risk Level 0 - 2 = Low Risk Oriented to surroundings, Maintained a safe environment, Educated pt \T\ family on fall prevention, incl call for assistance when getting out of bed, Assessed \T\ reinforced patient's understanding of fall precautions, Hourly rounding (assess needs \T\ fall precautionary measures) done, Used ambulatory aids as needed (educated on \T\ assisted with), Used gait belt as appropriate. Abuse screen: Denies threats or abuse. Denies injuries from another. Nutritional screening: No deficits noted. Tuberculosis screening: No symptoms or risk factors identified. Assessment: 16:10 General: Appears in no apparent distress. comfortable, Behavior is calm, cooperative. zm Pain: Denies pain. 16:10 Neuro: Level of Consciousness is awake, alert, obeys commands, Oriented to person, zm place, time, situation. Cardiovascular: Capillary refill < 3 seconds in bilateral fingers Patient's skin is warm and dry. Respiratory: Airway is patent Respiratory effort is even, unlabored, Respiratory pattern is regular, symmetrical. GI: No signs and/or symptoms were reported involving the gastrointestinal system. : No signs and/or symptoms were reported regarding the genitourinary system. EENT: No signs and/or symptoms were reported regarding the EENT system. Derm: No signs and/or symptoms reported regarding the dermatologic system. Musculoskeletal: No signs and/or symptoms reported regarding the musculoskeletal system. 17:37 Reassessment: Patient appears in no apparent distress at this time. Patient and/or iw family updated on plan of care and expected duration. Pain level reassessed. Patient is alert, oriented x 3, equal unlabored respirations, skin warm/dry/pink. Vital Signs: 13:51 BP 134 / 62; Pulse 65; Resp 16; Temp 98.2; Pulse Ox 100% ; Weight 81.65 kg; Height 5 me1 ft. 2 in. ; Pain 0/10; 17:37 BP 149 / 53; Pulse 61; Resp 16; Pulse Ox 98% on R/A; Pain 0/10; iw 13:51 Body Mass Index 32.92 (81.65 kg, 157.48 cm) me1 13:51 Pain Scale: Adult me1 17:37 Pain Scale: Adult iw ED Course: 13:34 Patient arrived in ED. cj3 13:55 Triage completed. me1 13:55 Arm band placed on Patient placed in waiting room. me1 14:03 Lilibeth Hansen PA-C is PHCP. sb4 14:03 Anibal Rock MD is Attending Physician. sb4 14:47 XRAY Chest (1 view) In Process Unspecified. EDMS 15:22 Della Hanson, RN is Primary Nurse. zm 16:09 Basic Metabolic Panel Sent. zm 16:09 CBC with Diff Sent. zm 16:09 LFT's Sent. zm 16:09 Magnesium Sent. zm 16:09 NT PRO-BNP Sent. zm 16:09 PT-INR Sent. zm 16:09 Troponin HS Sent. zm 16:15 Patient has correct armband on for positive identification. Bed in low position. Call zm light in reach. Side rails up X 1. Adult w/ patient. Provided Education on: call light use. 16:15 Client placed on continuous cardiac and pulse oximetry monitoring. NIBP monitoring zm applied. personnel monitor on. Pulse ox on. NIBP on. Door closed. Noise minimized. Lights dimmed. Verbal reassurance given. 17:37 No provider procedures requiring assistance completed. Patient did not have IV access iw during this emergency room visit. Administered Medications: No medications were administered Medication: 16:52 VIS not applicable for this client. Outcome: 17:24 Discharge ordered by MD. kumar 17:38 Discharged to home ambulatory, with family, iw 17:38 Condition: good 17:38 Discharge instructions given to patient, Instructed on discharge instructions, follow up and referral plans. Demonstrated understanding of instructions, follow-up care, 17:39 Patient left the ED. iw Signatures: Dispatcher [employer] Renee Salas, RN RN Della Hanson, RN RN Lilibeth Romero, PA-C PA-C [email or web address] Symone Meyer RN RN me1 Saira Tobin cj3 Corrections: (The following items were deleted from the chart) 13:56 13:55 PMHx: High Cholesterol; me1 me1
--- NOTE | 2025-02-01 17:24 | EDPHYS ---
Physician Documentation [facility] Name: Amy Wood Age: 84 yrs Sex: Female : 1940 Arrival Date: 02/01/2025 Time: 13:21 Bed 19 Private MD: ED Physician Anibal Rock HPI: 02/01 15:51 This 84 yrs old Female presents to ER via Wheelchair with complaints of High sb4 Blood Pressure, Dizziness. 17:27 Patient states that she was feeling poorly this morning, weak and dizzy, checked her sb4 blood pressure and it was elevated. She then took her morning dose of blood pressure medicine and states that it was not coming down so she called EMS. Blood pressure was normal for EMS but they brought her to the ED even though her symptoms have improved. She states that she thinks that she may have forgotten to take her blood pressure medicine last night but is unsure. Was seen here 10 days ago for similar occurrence, has not followed up with cardiology. Historical: - Allergies: 13:55 Bactrim; me1 13:55 Ciprofloxacin; me1 13:55 Codeine; me1 13:55 Doxycycline; me1 13:55 Sulfa (Sulfonamide Antibiotics); me1 - PMHx: 13:55 Hypertension; me1 - PSHx: 13:55 Operative procedure on knee; me1 - Immunization history:: Adult Immunizations up to date. - Infectious Disease History:: Denies. - Social history:: Smoking status: Patient denies any tobacco usage or history of. ROS: 17:28 Constitutional: Negative for fever, chills, and weight loss, sb4 17:28 Neuro: Positive for dizziness, 17:28 All other systems are negative, Exam: 17:28 Constitutional: This is a well developed, well nourished patient who is awake, alert, sb4 and in no acute distress. Head/Face: Normocephalic, atraumatic. Eyes: Extra-ocular motions intact. Periorbital areas with no swelling, redness, or edema. ENT: Mucous membranes moist. Cardiovascular: Regular rate and rhythm with a normal S1 and S2. Respiratory: No increased work of breathing, no retractions or nasal flaring. Abdomen/GI: Soft, non-tender, no distension. Skin: Warm, dry with normal turgor. Normal color with no rashes, no lesions, and no evidence of cellulitis. MS/ Extremity: Pulses equal, no cyanosis. Neurovascular intact. Full, normal range of motion. Neuro: Awake and alert, GCS 15, oriented to person, place, time, and situation. Motor strength 5/5 in all extremities. Sensory grossly intact. Vital Signs: 13:51 BP 134 / 62; Pulse 65; Resp 16; Temp 98.2; Pulse Ox 100% ; Weight 81.65 kg; Height 5 me1 ft. 2 in. ; Pain 0/10; 17:37 BP 149 / 53; Pulse 61; Resp 16; Pulse Ox 98% on R/A; Pain 0/10; iw 13:51 Body Mass Index 32.92 (81.65 kg, 157.48 cm) me1 13:51 Pain Scale: Adult me1 17:37 Pain Scale: Adult iw MDM: 14:05 Medical Screening Exam initiated sb4 17:28 Data interpreted: Pulse oximetry: on room air is 100 %. Interpretation: normal. Data sb4 reviewed: vital signs, nurses notes, EMS record, lab test result(s), EKG, radiologic studies, and as a result, I will discharge patient. Care significantly affected by the following chronic conditions: Hypertension, Obesity. 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 02/01 14:05 Order name: Basic Metabolic Panel; Complete Time: 17:17 sb4 02/01 14:05 Order name: CBC with Diff; Complete Time: 16:21 sb4 02/01 14:05 Order name: LFT's; Complete Time: 17:17 sb4 02/01 14:05 Order name: Magnesium; Complete Time: 17:17 sb4 02/01 14:05 Order name: NT PRO-BNP; Complete Time: 17:17 sb4 02/01 14:05 Order name: PT-INR; Complete Time: 16:25 sb4 02/01 14:05 Order name: Troponin HS; Complete Time: 17:17 sb4 02/01 14:05 Order name: XRAY Chest (1 view); Complete Time: 15:14 sb4 02/01 14:05 Order name: Cardiac monitoring; Complete Time: 15:55 sb4 02/01 14:05 Order name: EKG - Nurse/Tech; Complete Time: 15:55 sb4 02/01 14:05 Order name: Labs collected and sent; Complete Time: 16:09 sb4 02/01 14:05 Order name: O2 Per Protocol; Complete Time: 15:55 sb4 02/01 14:05 Order name: O2 Sat Monitoring; Complete Time: 15:55 sb4 02/01 16:24 Order name: Labs - recollect needed: recollect green top; Complete Time: 16:48 bd EC:35 Rate is 65 beats/min. Rhythm is regular, Normal Sinus Rhythm with Right bundle branch sb4 block. MA interval is normal at 162 msec. QRS interval is normal at 124 msec. QT interval is prolonged at 440 msec. No Q waves. T waves are Normal. No ST changes noted. Clinical impression: No evidence of ischemia. Interpreted by me. Reviewed by me. Administered Medications: No medications were administered Disposition: 17:53 Co-signature as Attending Physician, Anibal Rock MD I reviewed the patient's care rn provided by the Advanced Practice Provider and agree with the diagnosis and treatment plan. Disposition Summary: 02/01/25 17:24 Discharge Ordered Notes: Location: Home sb4 Problem: new sb4 Symptoms: have improved sb4 Condition: Stable sb4 Diagnosis - Essential (primary) hypertension sb4 Followup: sb4 - With: Private Physician - When: As needed - Reason: Recheck today's complaints, Re-evaluation by your physician Discharge Instructions: - Discharge Summary Sheet sb4 - Hypertension, Adult sb4 - Form - Blood Pressure Record Sheet sb4 Forms: - Patient Portal Instructions sb4 - Leadership Thank You Letter sb4 Signatures: Dispatcher [employer] Rain Lopez Roman, MD MD rn Brown, Sophia, PA-C PA-C sb4 Symone Meyer RN RN me1 Corrections: (The following items were deleted from the chart) 13:56 13:55 PMHx: High Cholesterol; me1 me1 14:06 14:06 BASIC METABOLIC PANEL+C.LAB.BRZ ordered. EDMS EDMS 14:06 14:06 CBC+H.LAB.BRZ ordered. EDMS EDMS 14: 14:06 HEPATIC FUNCTION+C.LAB.BRZ ordered. EDMS EDMS 14: 14:06 MAGNESIUM+C.LAB.BRZ ordered. EDMS EDMS 14: 14:06 PROBNP+C.LAB.BRZ ordered. EDMS EDMS : 14:06 PROTIME (+INR)+COAG.LAB.BRZ ordered. EDMS EDMS : 14:06 Troponin High Sensitivity+C.LAB.BRZ ordered. EDMS EDMS 14: 14:06 Chest Single View+RAD.RAD.BRZ ordered. EDMS EDMS
[2025-02-01 23:28] VITALS: TEMP 98.2
[2025-02-01 23:30] VITALS: BP 149/53; O2SAT 98
== END 2025-02-01 17:39 | disposition home or self-care (01) ==
LOC: ER 13:21
DX: R42 Dizziness and giddiness (principal); I10 Essential (primary) hypertension; Z88.1 Allergy status to other antibiotic agents; Z88.5 Allergy status to narcotic agent; Z88.2 Allergy status to sulfonamides
CPT/HCPCS: 36415; 71045; 80048; 80076; 83735; 83880; 84484; 85025; 85610; 93005; 99284